=== PATIENT | male | born 1930 | race Caucasian/White ===

== ENCOUNTER 2017-12-14 13:24 | Observation (INO) ==
--- OUTSIDE RECORDS SUMMARY | 2017-12-14 15:48 | External Medical Summary | Summary of Care ---
:1930 Author Name Wade Arteaga M.D. 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 Seborrheic keratosis (702.19, L82.1) Status: Active Colon cancer screening (V76.51, Z12.11) Status: Active Non smoker (V49.89, Z78.9) Status: Active Pain in joint of right shoulder (719.41, M25.511) Status: Active Visit for periodic health examination (V70.0, Z00.00) Status: Active Allergic rhinitis (477.9, J30.9) Status: Active Benign prostatic hypertrophy without urinary obstruction (600.00, N40.0) Status: Active History of colon polyps (V12.72, Z86.010) Status: Active Colon polyp (211.3, K63.5) Status: Active Diverticulosis (562.10, K57.90) Status: Active Hypercholesterolemia (272.0, E78.00) Status: Active Hypertension (401.9, I10) Status: Active Fall from standing, subsequent encounter (V58.89, W19.XXXD) Status: Active Prostate cancer (185, C61) Status: Active Rising PSA level (790.93, R97.20) Status: Active Prostate nodule (600.10, 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 Medications Name Dates Details AmLODIPine Besylate 5 MG Oral Tablet take one tablet by mouth every day Quantity: 90 Refills: 3 Aiden Zamarripa M.D. 20-Dec-2007 Active Atorvastatin Calcium 80 MG Oral Tablet take one tablet by mouth every day Quantity: 90 Refills: 3 Aiden Zamarripa M.D. Active Bicalutamide 50 MG Oral Tablet TAKE 1 TABLET DAILY. Quantity: 90 Refills: 3 Travis Cee Start 16-Jul-2016 Active Lupron Depot 45 MG Intramuscular Kit INJECT 45 MG Intramuscular Quantity: 1 Refills: 0 Travis Cee Start 24-Aug-2016 Active Allergies and Adverse Reactions Name Dates Details No Known Drug Allergies (Allergy) Status: Active Past Medical History Name Dates Details History of colonic polyps (V12.72, Z86.010) Status: Resolved History of Diverticulosis (562.10, K57.90) Status: Resolved History of hematuria (V13.09, Z87.448) Status: Resolved History of hypercholesterolemia (V12.29, Z86.39) Status: Resolved History of hypertension (V12.59, Z86.79) Status: Resolved History of Nasal congestion (478.19, R09.81) Status: Resolved Procedures Procedure Dates Details History of Hernia Repair Procedures not documented Immunization Name Dates Details Td on: 27-Aug-1997 Pneumo (Pneumovax) on: 31-Aug-2007 Zoster (Zostavax) on: March-2008 Influenza on: 02-Aug-2011 Fluzone INJ on: 05-Jul-2012 Tdap (Adacel) on: 05-Jul-2012 Lot #: [id number] Fluzone High-Dose SUSP on: 15-Aug-2013 Lot #: [id number] Pneumo (Prevnar) on: 15-Aug-2013 Lot #: [id number] Fluzone High-Dose 0.5 ML Intramuscular Suspension Prefilled Syringe on: 2014 Lot #: [id number] Fluzone High-Dose 0.5 ML Intramuscular Suspension Prefilled Syringe on: Lot #: [id number] Family History Unknown Family Member Name Dates Details Family history of Lung Cancer (V16.1) Comments: Family History Status: Active Family history of Malignant Pancreatic Neoplasm Comments: Family History Status: Active Father Name Dates Details Family history of malignant neoplasm of stomach (V16.0, Z80.0) Status: Active Social History Name Dates Details - Status: Smoking Status Name Dates Details Never smoker Vital Signs Date Test Result Details No Known Vitals to report Results Date Description Value Details 04-Mar-2017 15:35 CBC w/ Auto Diff 7150 WBC 8.8 K/uL Range: 4.5-11.0 RBC 4.15 mil/uL (Below low threshold) Range: 4.20-5.40 HGB 13.3 g/dL (Below low threshold) Range: 14.0-18.0 HCT 38.3 % (Below low threshold) Range: 42.0-53.0 MCV 92.4 fL Range: 80.0-99.0 MCH 32.1 pg Range: 27.3-32.5 MCHC 34.7 % Range: 32.0-36.0 RDW 13.7 % Range: 11.6-14.8 PLATELETS 264 K/uL Range: 150-400 MPV 6.5 fL Range: 6.0-11.0 %NEUTRO 62.6 % Range: 37.0-80.0 %LYMPHS 22.6 % Range: 13.0-50.0 %MONO 5.4 % Range: 0.0-12.0 %EOS 6.7 % Range: 0.0-7.0 %BASO 0.9 % Range: 0.0-2.5 %ISIDORO 1.7 % Range: 0.0-5.0 NEUTRO 5.5 K/uL Range: 2.0-6.9 LYMPHS 2.0 K/uL Range: 0.6-3.4 MONOS 0.5 K/uL Range: 0.0-0.9 EOS 0.6 K/uL Range: 0.0-0.7 BASO 0.1 K/uL Range: 0.0-0.2 16:03 Comprehensive Metabolic Panel 1212 SODIUM 142 mmol/L Range: 133-144 POTASSIUM 3.9 mmol/L Range: 3.5-5.1 CHLORIDE 106 mmol/L Range: 98-110 CARBON DIOXIDE 25.8 mmol/L Range: 23.0-33.0 ANION GAP 10 mmol/L Range: 6-16 BUN 17 mg/dL Range: 7-18 CREATININE, SERUM 0.86 mg/dL Range: 0.70-1.30 BUN:CREATININE RATIO 20 EST GFR, >60 ml/min Range: >60 EST GFR, NON-AFR [place] >60 ml/min Range: >60 Comments: EST GFR is reported in ml/min per 1.73 m2 of body surface area. ----- GLUCOSE 105 mg/dL (Above high Range: 70-100 threshold) ALK PHOSPHATASE 126 U/L (Above high Range: 46-116 threshold) TOTAL BILIRUBIN 0.70 mg/dL Range: 0.20-1.00 AST 19 U/L Range: 8-35 ALT 16 U/L Range: 16-63 ALBUMIN 3.8 g/dL Range: 3.4-5.0 TOTAL PROTEIN 7.3 g/dL Range: 6.4-8.2 A/G RATIO 1.1 units Range: 1.0-1.8 CALCIUM 9.3 mg/dL Range: 8.5-10.1 16:39 Testosterone 3102 TST <7.0 ng/dL (Below low threshold) Range: 241-814 Comments: Verified by Repeat Analysis----- Plan of Care Name Dates Details Planned Observations Planned Goals not documented Planned Encounters Appointment; Provider: Wade Arteaga M.D. On 09-Sep-2017 12:30 Instructions Name Dates Details Instructions not documented Encounters Appointment; Wade Arteaga M.D. On 04-Mar-2017 Encounter Diagnosis: Problem not documented 13:15 Appointment; Aiden Zamarripa M.D. On 23-Dec-2016 Encounter Diagnosis: Problem not documented 07:30 Appointment; Aiden Zamarripa M.D. On 15-Oct-2016 Encounter Diagnosis: Problem not documented 10:45 Appointment; Aiden Zamarripa M.D. On 29-Sep-2016 Encounter Diagnosis: Problem not documented 07:30 Appointment; Travis Cee M.D.,LUDIVINA, On 24-Aug-2016 Encounter Diagnosis: Problem not documented 14:00 Appointment; Aiden Zamarripa M.D. On 11-Aug-2016 Encounter Diagnosis: Problem not documented 07:30 Appointment; Travis Cee M.D.,LUDIVINA, On 16-Jul-2016 Encounter Diagnosis: Problem not documented 10:30 Appointment; Pelon Ribeiro M.D. On 30-Jun-2016 Encounter Diagnosis: Problem not documented 11:30 Appointment; Mychal Matute On 30-Jun-2016 Encounter Diagnosis: Problem not documented 11:00 Appointment; Travis Cee M.D.,LUDIVINA, On 30-Jun-2016 Encounter Diagnosis: Problem not documented 11:00 Appointment; Travis Cee M.D., FACS, On 23-Jun-2016 Encounter Diagnosis: Problem not documented 11:00 Appointment; Aiden Zamarripa M.D. On 10-Jun-2016 Encounter Diagnosis: Problem not documented 13:30 Appointment; Aiden Zamarripa M.D. On Encounter Diagnosis: Problem not documented 07:45 Appointment; Aiden Zamarripa M.D. On 18-Mar-2016 Encounter Diagnosis: Problem not documented 07:30 Appointment; Aiden Zamarripa M.D. On 27-Feb-2016 Encounter Diagnosis: Problem not documented 13:30 Appointment; Aiden Zamarripa M.D. On 16-Jan-2016 Encounter Diagnosis: Problem not documented 07:45 Appointment; Aiden Zamarripa M.D. On 20-Nov-2015 Encounter Diagnosis: Problem not documented 11:00 Appointment; Aiden Zamarripa M.D. On 10-Sep-2015 Encounter Diagnosis: Problem not documented 11:00 Appointment; Aiden Zamarripa M.D. On 09-Jul-2015 Encounter Diagnosis: Problem not documented 11:00 Appointment; Aiden Zamarripa M.D. On 13-Jun-2015 Encounter Diagnosis: Problem not documented 10:45 Appointment; Aiden Zamarripa M.D. On Encounter Diagnosis: Problem not documented 11:15 Appointment; Aiden Zamarripa M.D. On 20-Mar-2015 Encounter Diagnosis: Problem not documented 08:00
--- OUTSIDE RECORDS SUMMARY | 2017-12-14 15:48 | External Medical Summary | Summary of Care ---
:1930 Author Name Aiden Zamarripa M.D. 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, 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 Colon cancer screening (V76.51, Z12.11) Status: Active Diverticulosis (562.10, K57.90) Status: Active Colon polyp (211.3, K63.5) Status: Active Non smoker (V49.89, Z78.9) Status: Active Pain in joint of right shoulder (719.41, M25.511) Status: Active Hypertension (401.9, I10) Status: Active Hypercholesterolemia (272.0, E78.0) Status: Active Benign prostatic hypertrophy without urinary obstruction (600.00, N40.0) Status: Active Visit for periodic health examination (V70.0, Z00.00) Status: Active Allergic rhinitis (477.9, J30.9) Status: Active Medications Name Dates Details AmLODIPine Besylate 5 MG Oral Tablet take one tablet by mouth every day Quantity: 90 Refills: 1 Aiden Zamarripa M.D. 08-Jun-2016 Active Atorvastatin Calcium 80 MG Oral Tablet take one tablet by mouth every day Quantity: 30 Refills: 10 Aiden Zamarripa M.D. Active Allergies and Adverse Reactions Name Dates Details No Known Drug Allergies (Allergy) Status: Active Past Medical History Name Dates Details History of hematuria (V13.09, Z87.448) Status: Resolved History of hypercholesterolemia (V12.29, Z86.39) Status: Resolved History of hypertension (V12.59, Z86.79) Status: Resolved History of Nasal congestion (478.19, R09.81) Status: Resolved Procedures Procedure Dates Details History of Hernia Repair Colonoscopy- Screening or Dx Pendin10-Jun-2016 STOOL OCCULT BLOOD PANEL (x3) 8210 Ordered: 10-Jun-2016 Immunization Name Dates Details Td on: 27-Aug-1997 Pneumo (Pneumovax) on: 31-Aug-2007 Zoster (Zostavax) on: March-2008 Influenza on: 02-Aug-2011 Fluzone INJ on: 05-Jul-2012 Tdap (Adacel) on: 05-Jul-2012 Lot #: [id number] Fluzone High-Dose SUSP on: 15-Aug-2013 Lot #: [id number] Pneumo (Prevnar) on: 15-Aug-2013 Lot #: [id number] Fluzone High-Dose 0.5 ML Intramuscular Suspension Prefilled Syringe on: 2014 Lot #: [id number] Family History Unknown Family Member Name Dates Details Family history of Lung Cancer (V16.1) Comments: Family History Status: Active Family history of Malignant Pancreatic Neoplasm Comments: Family History Status: Active Social History Name Dates Details - Status: Smoking Status Name Dates Details Never smoker Vital Signs Date Test Result Details 10-Jun-2016 13:23 BP Systolic 94 mm[Hg] Status: Comments: Location: ; Position: BP Diastolic 64 mm[Hg] Status: Comments: Location: ; Position: Temperature 98.1 f Status: Comments: Method: Heart Rate 92 /min Status: Comments: Location: ; Physical Findings 32 Status: Comments: Respiration Height 67 in Status: Weight 158 lb Status: Body Mass Index Calculated 24.75 kg/m2 Status: Body Surface Area Calculated 1.83 m2 Status: Results Date Description Value Details 10-Jun-2016 14:10 Urinalysis, reflex to Micro and Culture ([facility]) 8016 pH 6.0 Range: 5.0-7.5 SP GRAVITY 1.025 Range: 1.010-1.030 APPEARANCE Cloudy (Abnormal) Range: Clear COLOR Dk Yellow (Abnormal) Range: Straw-Yellow PROTEIN 15 mg/dL (Abnormal) Range: Negative-Trace GLUCOSE Negative mg/dL Range: Negative KETONES Negative mg/dL Range: Negative BILIRUBIN Negative Range: Negative BLOOD Negative Range: Negative UROBIL 1.0 EU/dL Range: 0.2-1.0 NITRITE Negative Range: Negative LEUKOCYTES Negative Range: Negative 15:11 CBC w/ Auto Diff 7150 WBC 10.5 K/uL Range: 4.5-11.0 RBC 4.16 mil/uL (Below low threshold) Range: 4.20-5.40 HGB 13.0 g/dL (Below low threshold) Range: 14.0-18.0 HCT 38.8 % (Below low threshold) Range: 42.0-53.0 MCV 93.3 fL Range: 80.0-99.0 MCH 31.3 pg Range: 27.3-32.5 MCHC 33.5 % Range: 32.0-36.0 RDW 13.6 % Range: 11.6-14.8 PLATELETS 283 K/uL Range: 150-400 MPV 7.1 fL Range: 6.0-11.0 %NEUTRO 57.2 % Range: 37.0-80.0 %LYMPHS 22.4 % Range: 13.0-50.0 %MONO 7.2 % Range: 0.0-12.0 %EOS 9.6 % (Above high threshold) Range: 0.0-7.0 %BASO 0.8 % Range: 0.0-2.5 %ISIDORO 2.9 % Range: 0.0-5.0 NEUTRO 6.0 K/uL Range: 2.0-6.9 LYMPHS 2.4 K/uL Range: 0.6-3.4 MONOS 0.8 K/uL Range: 0.0-0.9 EOS 1.0 K/uL (Above high threshold) Range: 0.0-0.7 BASO 0.1 K/uL Range: 0.0-0.2 15:19 Comprehensive Metabolic Panel 1212 SODIUM 143 mmol/L Range: 133-144 POTASSIUM 3.6 mmol/L Range: 3.5-5.1 CHLORIDE 106 mmol/L Range: 98-110 CARBON DIOXIDE 25.6 mmol/L Range: 23.0-33.0 ANION GAP 11 mmol/L Range: 6-16 BUN 13 mg/dL Range: 7-18 CREATININE, SERUM 0.87 mg/dL Range: 0.70-1.30 Comments: Please note new reference ranges effective 2015.----- BUN:CREATININE RATIO 15 EST GFR, >60 ml/min Range: >60 EST GFR, NON-AFR [place] >60 ml/min Range: >60 Comments: EST GFR is reported in ml/min per 1.73 m2 of body surface area. For -[place], please multiple result by 1.2.----- GLUCOSE 96 mg/dL Range: 70-100 ALK PHOSPHATASE 108 U/L Range: 46-116 TOTAL BILIRUBIN 0.80 mg/dL Range: 0.20-1.00 AST 27 U/L Range: 8-35 ALT 25 U/L Range: 16-63 Comments: Please note new reference ranges. Effective 01/09/2015.----- ALBUMIN 3.6 g/dL Range: 3.4-5.0 TOTAL PROTEIN 6.7 g/dL Range: 6.4-8.2 A/G RATIO 1.2 units Range: 1.0-1.8 CALCIUM 9.1 mg/dL Range: 8.5-10.1 15:19 LIPID PROFILE 1184 CHOLESTEROL 154 mg/dL Range: <200 TRIGLYCERIDES 205 mg/dL (Above high threshold) Range: 30-200 HDL Cholesterol 40 mg/dL Range: >39 NON HDL CHOLESTEROL 114 CARDIAC RSK FACTOR 3.9 units (Below low threshold) Range: 4.4-5.0 LDL - CALCULATED 73 mg/dL Range: 0-130 15:29 THYROID STIM. HORMONE 3602 THYROID STIM. HORMONE 1.264 uIU/mL Range: 0.550-4.780 Comments: No established reference ranges for infants and children &lt ;2 years of age----- 15:30 PSA ( PROSTATE SPECIFIC ANTIGEN) 3100 PROSTATE SPECIFIC ANTIGEN 5.590 ng/mL (Above high threshold) Range: 0.000- 4.000 Plan of Care Name Dates Details Planned Observations Colonoscopy- Screening or Dx On 10-Jun-2016 Intent Planned Goals not documented Interventions Provided Labs/Procedures/ImagingSTOOL OCCULT BLOOD PANEL (x3) 8210; To be Done: 10 Jun 2016CBC w/ Auto Diff 7150; Done: Jun 10 2016 1:50PMComprehensive Metabolic Panel 1212; Done: Jun 10 2016 1:50PMLIPID PROFILE 1184; Done: Jun 10 2016 1: 50PMPSA ( PROSTATE SPECIFIC ANTIGEN) 3100; Done: Jun 10 2016 1:50PMTHYROID STIM. HORMONE 3602; Done: Jun 10 2016 1:50PM Instructions Name Dates Details Instructions not documented Encounters Appointment; Aiden Zamarripa M.D. On Encounter Diagnosis: Problem not documented 07:45 Appointment; Aiden Zamarripa M.D. On 18-Mar-2016 Encounter Diagnosis: Problem not documented 07:30 Appointment; Aiedn Zamarripa M.D. On 27-Feb-2016 Encounter Diagnosis: Problem [...] 20-Mar-2015 Encounter Diagnosis: Problem not documented 08:00 Appointment; Aiden Zamarripa M.D. On 26-Feb-2015 Encounter Diagnosis: Problem not documented 10:45 Appointment; Aiden Zamarripa M.D. On 16-Dec-2014 Encounter Diagnosis: Problem not documented 10:00 Appointment; Aiden Zamarripa M.D. On 30-Oct-2014 Encounter Diagnosis: Problem not documented 08:45 Appointment; Aiden Zamarripa M.D. On 11-Sep-2014 Encounter Diagnosis: Problem not documented 11:00 Appointment; Aiden Zamarripa M.D. On 14-Aug-2014 Encounter Diagnosis: Problem not documented 10:45 Appointment; Aiden Zamarripa M.D. On 19-Jun-2014 Encounter Diagnosis: Problem not documented 10:45
--- OUTSIDE RECORDS SUMMARY | 2017-12-14 15:48 | External Medical Summary | Summary of Care ---
:1930 Author Name Coleman Mayes, LUDIVINA, ,Octaviano Address Unavailable Unavailable , Care Team Providers Name Role Phone Coleman Mayes, LUDIVINA, ,Octaviano Unavailable Unavailable Quintin Mayes, Pelon Unavailable Unavailable Dallin Mayes, Aiden Unavailable Unavailable Aiden Zamarripa [...] Status: Active Hypercholesterolemia (272.0, E78.0) Status: Active Visit for periodic health examination (V70.0, Z00.00) Status: Active Allergic rhinitis (477.9, J30.9) Status: Active Elevated PSA (790.93, R97.2) Status: Active Prostate nodule (600.10, 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 Benign prostatic hypertrophy without urinary obstruction (600.00, N40.0) Status: Active Medications Name Dates Details AmLODIPine Besylate 5 MG Oral Tablet take one tablet by mouth every day Quantity: 90 Refills: 3 Aiden Zamarripa M.D. [birth year]-Dec-2007 Active Atorvastatin Calcium 80 MG Oral Tablet take one tablet by mouth every day Quantity: 90 Refills: 3 Dallin MayesAiden Start Active PEG-3350/Electrolytes 236 GM Oral Solution Reconstituted MIX AND DRINK DIRECTED PER COLONOSCOPY INSTRUCTIONS. Quantity: 1 Refills: 0 Quintin Mayes Pelon Start 14-Jun-2016 Active 4000 ML Bottle Ciprofloxacin HCl - 500 MG Oral Tablet Take 1 tablet one hour prior to procedure, take 1 tablet at supper, take 1 tablet the next day at breakfast Quantity: 3 Refills: 0 Coleman Mayes, LUDIVINA, , , Travis Brumfield Start 23-Jun-2016 Active Allergies and Adverse Reactions Name Dates Details No Known Drug Allergies (Allergy) Status: Active Past Medical History Name Dates Details History of hematuria (V13.09, Z87.448) Status: Resolved History of hypercholesterolemia (V12.29, Z86.39) Status: Resolved History of hypertension (V12.59, Z86.79) Status: Resolved History of Nasal congestion (478.19, R09.81) Status: Resolved Procedures Procedure Dates Details History of Hernia Repair Colonoscopy- Screening or Dx Ordered: 10-Jun-2016 URINE CULTURE [id number] Ordered: 23-Jun-2016 Immunization Name Dates Details Td on: 27-Aug-1997 Pneumo (Pneumovax) on: 31-Aug-2007 Zoster (Zostavax) on: March-2008 Influenza on: 02-Aug-2011 Fluzone INJ on: 05-Jul-2012 Tdap (Adacel) on: 05-Jul-2012 Lot #: [id number] Fluzone High-Dose SUSP on: 15-Aug-2013 Lot #: [id number] Pneumo (Prevnar) on: 15-Aug-2013 Lot #: [id number] Fluzone High-Dose 0.5 ML Intramuscular Suspension Prefilled Syringe on: 2014 Lot #: [id number] Family History Unknown Family Member Name Dates Details Family history of Lung Cancer (V16.1) Comments: Family History Status: Active Family history of Malignant Pancreatic Neoplasm Comments: Family History Status: Active Social History Name Dates Details - Status: Smoking Status Name Dates Details Never smoker Vital Signs Date Test Result Details 23-Jun-2016 11:22 BP Systolic 108 mm[Hg] Status: Comments: Location: ; Position: BP Diastolic 72 mm[Hg] Status: Comments: Location: ; Position: 11-Aug-2016 13:23 BP Systolic 94 mm[Hg] Status: Comments: Location: ; Position: Sitting BP Diastolic 64 mm[Hg] Status: Comments: Location: ; Position: Sitting Temperature 98.1 f Status: Heart Rate 92 /min Status: Physical Findings 32 Status: Comments: Respiration Height 67 in Status: Weight 158 lb Status: Body Mass Index Calculated 24.75 kg/m2 Status: Body Surface Area Calculated 1.83 m2 Status: Results Date Description Value Details 10-Jun-2016 14:10 Urinalysis, reflex to Micro and Culture ([email or web address] 8016 pH 6.0 Range: 5.0-7.5 SP GRAVITY [...] >60 ml/min Range: >60 EST GFR, NON-AFR CITIZEN OF [place] >60 ml/min Range: >60 Comments: EST GFR is reported in ml/min per 1.73 m2 of body surface area. For -Nepalese, please multiple result by 1.2.----- GLUCOSE 96 [...] ng/mL (Above high threshold) Range: 0.000- 4.000 15-Jun-2016 10:52 STOOL OCCULT BLOOD PANEL (x3) 8210 OCCULT BLOOD, SAMPLE 1 Negative Range: Negative OCCULT BLOOD, SAMPLE 2 Negative Range: Negative OCCULT BLOOD, SAMPLE 3 Negative Range: Negative Plan of Care Name Dates Details Planned Observations Planned Goals not documented Planned Encounters Appointment; Provider: Pelon Ribeiro M.D. On 30-Jun-2016 11:30 Appointment; Provider: Mychal Matute On 30-Jun-2016 11:00 Appointment; Provider: Travis Cee M.D.|LUDIVINA Kevin|LUDIVINA Mayes, On 30-Jun-2016 11:00 Interventions Provided Medication ChangesCiprofloxacin HCl - 500 MG Oral Tablet - StartLabs/Procedures/ ImagingURINE CULTURE [id number]; To be Done: 23 Jun 2016 Instructions Name Dates Details Instructions not documented Encounters Appointment; Aiden Zamarripa M.D. On 10-Jun-2016 Encounter [...] On 14-Aug-2014 Encounter Diagnosis: Problem not documented 10:45"
--- OUTSIDE RECORDS SUMMARY | 2017-12-14 15:48 | External Medical Summary ---
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84 [facility] [address] Oct, Left hip pain M25.552 ; [place] [address] Left hip pain M25.552 and Radiculopathy of lumbar region M54.16 [facility] [address] Oct, Left leg pain M79.605 ; [place] [address] Left lower quadrant pain R10.32 and Prostate cancer C61 [facility] [address] Oct, Hayfever J30.1 [place] [address] [facility] [address] Oct, [place] [address] [facility] [address] Sep, Lower abdominal pain R10.30 [place] [address] [facility] [address] Aug, Cancer of prostate C61 [place] [address] [facility] [address] Jul, Osteoarthritis of right [place] [address] knee M17.9 and Hayfever J30.1 [facility] [address] 16 Jul, 2017 [place] [address] [facility] [address] May, [place] [address] [facility] [address] Mar, [place] [address] [facility] [address] Mar, Acute seasonal allergic [place] [address] rhinitis due to pollen J30.1 [facility] [address] February, [place] [address] [facility] [address] February, Prostate cancer C61 [place] [address] [facility] [address] February, Osteoarthritis of right [place] [address] knee M17.9 [facility] [address] Jan, Cancer of prostate C61 [place] [address] [facility] [address] Jan, [place] [id number] [facility] [address] Jan, Right knee pain M25.561 and [place] [address] Osteoarthritis of right knee M17.9 [facility] [address] Jul, Cancer of prostate C61 [place] [address] IMMUNIZATIONS No Known Immunizations SOCIAL HISTORY Never Assessed REASON FOR VISIT PLAN OF CARE VITAL SIGNS MEDICATIONS Unknown Medications RESULTS No Results PROCEDURES No Known procedures INSTRUCTIONS MEDICATIONS ADMINISTERED No Known Medications MEDICAL (GENERAL) HISTORY Type Description Date Surgical History right inguenial hernia repair
--- OUTSIDE RECORDS SUMMARY | 2017-12-14 15:49 | External Medical Summary ---
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
--- OUTSIDE RECORDS SUMMARY | 2017-12-14 15:49 | External Medical Summary ---
:1930 Author Organization [facility] Address [address] [place] [address] Care Team Providers Name Role Phone Nicole Guevara Unavailable Unavailable PROBLEMS ALLERGIES No Known Allergies ENCOUNTERS IMMUNIZATIONS No Known Immunizations SOCIAL HISTORY No smoking Hx information available REASON FOR VISIT PLAN OF CARE VITAL SIGNS MEDICATIONS RESULTS No Results PROCEDURES No Known procedures INSTRUCTIONS MEDICATIONS ADMINISTERED No Known Medications MEDICAL (GENERAL) HISTORY
--- OUTSIDE RECORDS SUMMARY | 2017-12-14 15:49 | External Medical Summary | Summary of Care ---
:1930 Author Name Aiden Zamarripa M.D. Address [address], [place] [id number] Care Team Providers Name Role Phone Aiden Zaamrripa M.D. 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 Started 20-Dec-2007 ActiveAtorvastatin Calcium 80 MG Oral Tablet take one tablet by mouth every day Quantity: 30 Refills: 10 Aiden Zamarripa M.D. Started Active Allergies and Adverse Reactions Name Dates Details No Known Drug Allergies Status: Active Past Medical History Name Dates Details History Of Hypercholesterolemia (V12.29, Z86.39) Status: Resolved History of hypertension (V12.59, Z86.79) Status: Resolved History of Nasal congestion (478.19, R09.81) Status: Resolved Procedures Procedure Dates Details History of Hernia Repair Procedures not documented Immunization Name Dates Details Td Administered on:27-Aug-1997 Pneumo (Pneumovax) Administered on:31-Aug-2007 Zoster (Zostavax) Administered on:March-2008 Influenza Administered on:02-Aug-2011 Fluzone Intramuscular Injectable Administered on:05-Jul-2012 Tdap (Adacel) Administered on:05-Jul-2012 Lot #: [id number] Fluzone High-Dose Intramuscular Suspension Administered on:15-Aug-2013 Lot #: [id number] Pneumo (Prevnar) Administered on:15-Aug-2013 Lot #: [id number] Fluzone High-Dose 0.5 ML Intramuscular Suspension Prefilled Syringe Administered on:Jul-2015 Lot #: [id number] Family History Unknown Family Member Name Dates Details Family history of Lung Cancer (V16.1) Comments: Family History Status: Active Family history of Malignant Pancreatic Neoplasm Comments: Family History Status: Active Social History Name Dates Details Smoking StatusNever smoker Vital Signs Date Test Result Details No Known Vitals to report Results Date Description Value Details Results not documented Plan of Care Planned Observations Name Dates Details Planned Goals not documented Goal Instructions Instructions not documented Encounters Appointment; Aiden Zamarripa On 09-Jul-2015 Encounter Diagnosis: Problem not documented 11:00 Appointment; Aiden Zamarripa On 13-Jun-2015 Encounter Diagnosis: Problem not documented 10:45 Appointment; Aiden Zamarripa On Encounter Diagnosis: Problem not documented 11:15 Appointment; Aiden Zamarripa On 20-Mar-2015 Encounter Diagnosis: Problem not documented 08:00 Appointment; Aiden Zamarripa On 26-Feb-2015 Encounter Diagnosis: Problem not documented 10:45 Appointment; Aiden Zamarripa On 16-Dec-2014 Encounter Diagnosis: Problem not documented 10:00 Appointment; Aiden Zamarripa On 30-Oct-2014 Encounter Diagnosis: Problem not documented 08:45 Appointment; Aiden Zamarripa On 11-Sep-2014 Encounter Diagnosis: Problem not documented 11:00 Appointment; Aiden Zamarripa On 14-Aug-2014 Encounter Diagnosis: Problem not documented 10:45 Appointment; Aiden Zamarripa On 19-Jun-2014 Encounter Diagnosis: Problem not documented 10:45 Appointment; Mychal Matute On Encounter Diagnosis: Problem not documented 13:45 Appointment; Ingrid Roldan On Encounter Diagnosis: Problem not documented 10:00 Appointment; Aiden Zamarripa On Encounter Diagnosis: Problem not documented 08:30 Appointment; Aiden Zamarripa On 20-Mar-2014 Encounter Diagnosis: Problem not documented 10:30 Appointment; Aiden Zamarripa On 19-Dec-2013 Encounter Diagnosis: Problem not documented 10:30 Appointment; Aiden Zamarripa On 30-Oct-2013 Encounter Diagnosis: Problem not documented 09:45 Appointment; Aiden Zamarripa On 19-Sep-2013 Encounter Diagnosis: Problem not documented 11:15 Appointment; Aiden Zamarripa On 15-Aug-2013 Encounter Diagnosis: Problem not documented 11:15
--- OUTSIDE RECORDS SUMMARY | 2017-12-14 15:49 | External Medical Summary ---
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 726046225 right knee Problem Cancer of prostate C61 Active 872734364 ALLERGIES No Information SOCIAL HISTORY Never Assessed PLAN OF CARE VITAL SIGNS MEDICATIONS Medication Instructions Dosage Frequency Start End Date Duration Status Date Amlodipine Orally Once a 1 tablet 24h 90 days Active Besylate 5 MG day Bicalutamide 50 Orally Once a 1 tablet 24h Active MG day Atorvastatin Orally Once a 1 tablet 24h 90 days Active Calcium 80 MG day RESULTS Name Result Date Reference Range [facility] Venipuncture-Charge Only 2017-09-20 PROCEDURES Procedure Date Ordered Result Body Site VENIPUNCTURE Sep 20, 2017 IMMUNIZATIONS No Known Immunizations MEDICAL (GENERAL) HISTORY Type Description Date Surgical History right inguenial hernia repair
--- OUTSIDE RECORDS SUMMARY | 2017-12-14 15:49 | External Medical Summary | Summary of Care ---
:1930 Author Name Coleman Mayes, LUDIVINA, ,Octaviano Address Unavailable Unavailable , Care Team Providers Name Role Phone Coleman Mayes, LUDIVINA, ,Octaviano Unavailable Unavailable Aiden Zamarripa M.D. Unavailable Unavailable Aiden Zamarripa Unavailable Unavailable Unavailable [...] Active Allergic rhinitis (477.9, J30.9) Status: Active Prostate nodule (600.10, 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 Benign prostatic hypertrophy without urinary obstruction (600.00, N40.0) Status: Active History of colon polyps (V12.72, Z86.010) Status: Active Colon polyp (211.3, K63.5) Status: Active Diverticulosis (562.10, K57.90) Status: Active Elevated PSA (790.93, R97.2) Status: Active Medications Name Dates Details AmLODIPine Besylate 5 MG Oral Tablet take one tablet by mouth every day Quantity: 90 Refills: 3 Aiden Zamarripa M.D. 20-Dec-2007 Active Atorvastatin Calcium 80 MG Oral Tablet take one tablet by mouth every day Quantity: 90 Refills: 3 Dallin Mayes Aiden Start Active Ciprofloxacin HCl - 500 MG Oral Tablet [...] 05-Jul-2012 Tdap (Adacel) on: 05-Jul-2012 Lot #: [id number] Fluzone High-Dose SUSP on: 15-Aug-2013 Lot #: [id number] Pneumo (Prevnar) on: 15-Aug-2013 Lot #: [id number] Fluzone High-Dose 0.5 ML Intramuscular Suspension Prefilled Syringe on: 2014 Lot #: [id number] Family History Unknown Family Member Name Dates [...] 72 mm[Hg] Status: Comments: Location: ; Position: 10-Jun-2016 13:23 BP Systolic 94 mm[Hg] Status: [...] 14:10 [facility] 8016 pH 6.0 Range: 5.0-7.5 SP GRAVITY [...] >60 ml/min Range: >60 EST GFR, NON-AFR [place] >60 ml/min Range: >60 Comments: EST GFR is reported in ml/min per 1.73 m2 of body surface area. For -Citizen Of [place], please multiple result by 1.2.----- GLUCOSE 96 [...] OCCULT BLOOD, SAMPLE 3 Negative Range: Negative 25-Jun-2016 08:44 URINE CULTURE [id number] Comments: [facility] performed at: [facility], [address] [place], [address], Fiberglass Laminator: Wade Barraza D.O., MPHQuest Collection Date/Time: 00Quest Results Received Date/Time: [id number] Reported Date /Time: FASTING:NO CULTURE, URINE, ROUTINE SEE NOTE Comments: CULTURE, URINE, ROUTINE MICRO NUMBER: [id number] TEST STATUS: FINAL SPECIMEN SOURCE: URINE , CLEAN CATCH SPECIMEN QUALITY: ADEQUATE RESULT: No Growth[DC]---- - 30-Jun-2016 Colonoscopy Abnormal- Polyps Range: 0 12:41 Plan of Care Name Dates Details Planned Observations Planned Goals not documented Instructions Name Dates Details Instructions not documented Encounters Appointment; Travis Cee M.D.|LUDIVINA Kevin|LUDIVINA Mayes, On 2015 Encounter Diagnosis: Problem not documented 11:00 Appointment; [...]
--- OUTSIDE RECORDS SUMMARY | 2017-12-14 15:49 | External Medical Summary ---
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
--- OUTSIDE RECORDS SUMMARY | 2017-12-14 15:49 | External Medical Summary | Summary of Care ---
:1930 Author Name Dallin Mayes, Aiden Address Unavailable Unavailable , Care Team Providers Name Role Phone Quintin Mayes, Pelon Unavailable Unavailable Dallin Mayes, [...] 90 Refills: 3 Aiden Zamarripa M.D. Active PEG-3350/Electrolytes 236 GM Oral Solution Reconstituted MIX AND DRINK DIRECTED PER COLONOSCOPY INSTRUCTIONS. Quantity: 1 Refills: 0 Quintin Octaviano.Conor, Pelon Start 14-Jun-2016 Active 4000 ML Bottle Allergies and Adverse Reactions Name Dates Details No Known Drug Allergies (Allergy) Status: Active Past Medical History Name Dates Details History of hematuria (V13.09, Z87.448) Status: Resolved History of hypercholesterolemia (V12.29, Z86.39) Status: Resolved History of hypertension (V12.59, Z86.79) Status: Resolved History of Nasal congestion (478.19, R09.81) Status: Resolved Procedures Procedure Dates Details History of Hernia Repair Colonoscopy- Screening or Dx Ordered: 10-Jun-2016 Immunization Name Dates Details Td on: 27-Aug-1997 Pneumo (Pneumovax) on: 31-Aug-2007 Zoster (Zostavax) on: March-2008 Influenza on: 02-Aug-2011 Fluzone INJ on: 05-Jul-2012 Tdap (Adacel) on: 05-Jul-2012 Lot #: [id number] Fluzone High-Dose SUSP on: 15-Aug-2013 Lot #: [id number] Pneumo (Prevnar) on: 15-Aug-2013 Lot #: [id number] Fluzone High-Dose 0.5 ML Intramuscular Suspension Prefilled Syringe on: 2014 Lot #: [id number] Family History Unknown Family Member Name Dates [...] 14:10 Urinalysis, reflex to Micro and Culture ([facility]) 8016 pH 6.0 Range: 5.0-7.5 SP [...] >60 ml/min Range: >60 EST GFR, NON-AFR [place] >60 ml/min Range: >60 Comments: EST GFR is reported in ml/min per 1.73 m2 of body surface area. For -[place]izean, please multiple result by 1.2.----- GLUCOSE 96 [...] On 30-Jun-2016 11:00 Appointment; Provider: Travis Cee M.D.|[place]|Sugey,LUDIVINA|Sugey,LUDIVINA, On 23-Jun-2016 11:00 Interventions Provided Labs/Procedures/ImagingCBC w/ Auto Diff 7150; Done: Jun 10 2016 1: 50PMComprehensive Metabolic Panel 1212; Done: Jun 10 2016 1:50PMLIPID PROFILE 1184; Done: Jun 10 2016 1:50PMPSA ( PROSTATE SPECIFIC ANTIGEN) 3100; Done: Jun 10 2016 1:50PMSTOOL OCCULT BLOOD PANEL (x3) 8210; Done: Jun 15 2016 10: 41AMTHYROID STIM. HORMONE 3602; Done: Jun 10 2016 [...] On 19-Jun-2014 Encounter Diagnosis: Problem not documented 10:45"
--- OUTSIDE RECORDS SUMMARY | 2017-12-14 15:49 | External Medical Summary | Summary of Care ---
:1932 Author Name Provider, Outside Address Unavailable Unavailable , Care Team Providers Name Role Phone Aiden Zamarripa M.D. 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: Active Hypercholesterolemia (272.0, E78.0) Status: Active Benign prostatic hypertrophy without urinary obstruction (600.00, N40.0) Status: Active Colon cancer screening (V76.51, Z12.11) Status: Active Diverticulosis (562.10, K57.90) Status: Active Colon polyp (211.3, K63.5) Status: Active Allergic rhinitis (477.9, J30.9) Status: Active Non smoker (V49.89, Z78.9) Status: Active Pain in joint of right shoulder (719.41, M25.511) Status: Active Medications Name Dates Details AmLODIPine [...] of hematuria (V13.09, Z87.448) Status: Resolved History Of Hypercholesterolemia (V12.29, Z86.39) Status: Resolved History of hypertension (V12.59, Z86.79) Status: Resolved History of Nasal congestion (478.19, R09.81) Status: Resolved Procedures Procedure Dates Details History of Hernia Repair Procedures not documented Immunization Name Dates Details Td Administered on:27-Aug-1997 Pneumo (Pneumovax) Administered on:31-Aug-2007 Zoster (Zostavax) Administered on:March-2008 Influenza Administered on:02-Aug-2011 Fluzone Intramuscular Injectable Administered on:05-Jul-2012 Tdap (Adacel) Administered on:05-Jul-2012 Lot #: [id number] Fluzone High-Dose Intramuscular Suspension Administered on:15-Aug-2013 Lot #: [id number] Pneumo (Prevnar) Administered on:15-Aug-2013 Lot #: [id number] Fluzone High-Dose 0.5 ML Intramuscular Suspension Prefilled Syringe Administered on:Jul-2015 Lot #: [id number] Family History Unknown Family Member Name Dates Details Family history of Lung Cancer (V16.1) Comments: Family History Status: Active Family history of Malignant Pancreatic Neoplasm Comments: Family History Status: Active Social History Name Dates Details Smoking StatusNever smoker Vital Signs Date Test Result Details 27-Feb-2016 13:24 BP Systolic 110 mm[Hg] Status: BP Diastolic 58 mm[Hg] Status: Temperature 97.7 f Status: Heart Rate 87 /min Status: Respiration Rate 12 /min Status: Weight 161 lb Status: O2 SAT 95 % Status: Body Mass Index Calculated 25.22 kg/m2 Status: Body Surface Area Calculated 1.84 m2 Status: Results Date Description Value Details Results not documented Plan of Care Planned Observations Name Dates Details Planned Goals not documented Goal Instructions Instructions not documented Encounters Appointment; Aiden Zamarripa On 27-Feb-2016 Encounter Diagnosis: Problem not documented 13:30 Appointment; Aiden Zamarripa On 16-Jan-2016 Encounter Diagnosis: Problem not documented 07:45 Appointment; Aiden Zamarripa On 20-Nov-2015 Encounter Diagnosis: Problem not documented 11:00 Appointment; Aiden Zamarripa On 10-Sep-2015 Encounter Diagnosis: Problem not documented 11:00 Appointment; Aiden Zamarripa On 09-Jul-2015 Encounter Diagnosis: [...]
--- OUTSIDE RECORDS SUMMARY | 2017-12-14 15:49 | External Medical Summary ---
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 988315488 right knee Problem Cancer of prostate C61 Active 853721212 ALLERGIES No Information SOCIAL HISTORY Never Assessed PLAN OF CARE VITAL SIGNS MEDICATIONS Medication Instructions Dosage Frequency Start End Date Duration Status Date Atorvastatin Orally Once a 1 tablet 24h 90 days Active Calcium 80 MG day Amlodipine Orally Once a 1 tablet 24h 90 days Active Besylate 5 MG day RESULTS No Results PROCEDURES Procedure Date Ordered Result Body Site INJ : DEPO MEDROL 40MG Nov 02, 2017 ADMINISTRATION OF THERAPEUTIC INJECTION Nov 02, 2017 IMMUNIZATIONS Vaccine Route Administration Date Status INJ: DEPO MEDROL 40MG IM Intramuscular Nov 02, 2017 Administered MEDICAL (GENERAL) HISTORY Type Description Date Surgical History right inguenial hernia repair
--- OUTSIDE RECORDS SUMMARY | 2017-12-14 15:49 | External Medical Summary | Summary of Care ---
:1930 Author Name Quintin Mayes, Pelon Address Unavailable Unavailable , Care Team Providers Name Role Phone Coleman Mayes, LUDIVINA, ,, M Travis Unavailable Unavailable Quintin Mayes, Pelon Unavailable Unavailable [...] Status: Active Diverticulosis (562.10, K57.90) Status: Active Non smoker (V49.89, Z78.9) Status: [...] of colon polyps (V12.72, Z86.010) Status: Active Medications Name Dates Details AmLODIPine Besylate 5 MG Oral Tablet take one tablet by mouth every day Quantity: 90 Refills: 3 Dallin Mayes, Aiden Coronel 20-Dec-2007 Active Atorvastatin Calcium 80 MG Oral [...] polyps (V12.72, Z86.010) Status: Resolved History of hematuria (V13.09, Z87.448) [...] 05-Jul-2012 Tdap (Adacel) on: 05-Jul-2012 Lot #: [id number] Fluzone High-Dose SUSP on: 15-Aug-2013 Lot #: [id number] Pneumo (Prevnar) on: 15-Aug-2013 Lot #: [id number] Fluzone High-Dose 0.5 ML Intramuscular Suspension Prefilled Syringe on: 2014 Lot #: [id number] Family History Unknown Family Member Name Dates [...] 14:10 Urinalysis, reflex to Micro and Culture ([facility]) 8016 pH 6.0 Range: 5.0-7.5 SP [...] >60 ml/min Range: >60 EST GFR, NON-AFR [place] >60 ml/min Range: >60 Comments: EST GFR is reported in ml/min per 1.73 m2 of body surface area. For -[place]enian, please multiple result by 1.2.----- GLUCOSE 96 [...] Negative Range: Negative 25-Jun-2016 08:44 URINE CULTURE [id number] Comments: [employer] performed at: [facility] [address] [place], [address], Brake Reliner: Wade Barraza D.O. MPHQuest Collection Date/Time: Quest Results Received Date/Time: [id number] Reported Date /Time: FASTING:NO CULTURE, URINE, ROUTINE SEE NOTE Comments: CULTURE, URINE, ROUTINE MICRO NUMBER: [id number] TEST STATUS: FINAL SPECIMEN SOURCE: URINE , CLEAN CATCH SPECIMEN QUALITY: ADEQUATE RESULT: No Growth[VT]---- - Plan of Care Name Dates Details Planned Observations Planned Goals not documented Instructions Name Dates Details Instructions not documented Encounters Appointment; Mychal Matute On 30-Jun-2016 Encounter Diagnosis: Problem not documented 11:00 Appointment; Travis Cee M.D.|Herminio[facility]revor[facility]revor|LUDIVINA Mayes|LUDIVINA Mayes, On 2015 Encounter Diagnosis: Problem not documented 11:00 Appointment; Travis Cee M.D.|HerminioCTrevorSTrevor|LUDIVINA Mayes|LUDIVINA Mayes, On 2015 Encounter Diagnosis: Problem not [...]
--- OUTSIDE RECORDS SUMMARY | 2017-12-14 15:49 | External Medical Summary | Summary of Care ---
[...] Quantity: 90 Refills: 1 Aiden Zamarripa M.D. Start 08-Jun-2016 Active Atorvastatin Calcium 80 MG Oral Tablet take one tablet by mouth every day Quantity: 30 Refills: 10 Aiden Zamarripa M.D. Start Active Allergies and Adverse Reactions Name Dates Details No Known Drug Allergies (Allergy) Status: Active Past Medical History Name Dates Details History of hematuria (V13.09, Z87.448) Status: Resolved History of hypercholesterolemia (V12.29, Z86.39) Status: Resolved History of hypertension (V12.59, Z86.79) Status: Resolved History of Nasal congestion (478.19, R09.81) Status: Resolved Procedures Procedure Dates Details History of Hernia Repair Colonoscopy- Screening or Dx Pendin10-Jun-2016 CBC w/ Auto Diff 7150 Ordered: 10-Jun-2016 Comprehensive Metabolic Panel 1212 Ordered: 10-Jun-2016 LIPID PROFILE 1184 Ordered: 10-Jun-2016 PSA ( PROSTATE SPECIFIC ANTIGEN) 3100 Ordered: 10-Jun-2016 STOOL OCCULT BLOOD PANEL (x3) 8210 Ordered: 10-Jun-2016 THYROID STIM. HORMONE 3602 Ordered: 10-Jun-2016 Immunization Name Dates Details Td on: 27-Aug-1997 Pneumo (Pneumovax) on: 31-Aug-2007 Zoster (Zostavax) on: March-2008 Influenza on: 02-Aug-2011 Fluzone INJ on: 05-Jul-2012 Tdap (Adacel) on: 05-Jul-2012 Lot #: [id number] Fluzone High-Dose SUSP on: 15-Aug-2013 Lot #: [id number] Pneumo (Prevnar) on: 15-Aug-2013 Lot #: [id number] Fluzone High-Dose 0.5 ML Intramuscular Suspension Prefilled Syringe on: 2014 Lot #: [id number] Family History Unknown Family Member Name Dates [...] Details Results not documented Plan of Care Name Dates Details Planned Observations Colonoscopy- Screening or Dx On 10-Jun-2016 Intent Planned Goals not documented Interventions Provided Labs/Procedures/ImagingCBC w/ Auto Diff 7150; To be Done: 10 Jun 2016Comprehensive Metabolic Panel 1212; To be Done: 10 Jun 2016LIPID PROFILE 1184; To be Done: 10 Jun 2016PSA ( PROSTATE SPECIFIC ANTIGEN) 3100; To be Done: 10 Jun 2016STOOL OCCULT BLOOD PANEL (x3) 8210; To be Done: 10 Jun 2016THYROID STIM. HORMONE 3602; To be Done: 10 Jun 2016 Instructions Name Dates Details Instructions [...]
--- OUTSIDE RECORDS SUMMARY | 2017-12-14 15:49 | External Medical Summary ---
:1932 Author Name GENERATED, SYSTEM Care Team Providers Name Role Phone EB MACKAY DALE Primary Care Provider [phone] Reason For Visit Chief Complaint PROSTATE CA Social History Functional Status Vital Signs Results MRI from 03/30/2017 3:09 PMMR RADIATION THERAPY PLANNINGFINDINGS: Radiation treatment planning purposes only. IMPRESSION: As described above. Electronically signed by: Admin, Radiology Dictated: 03/31/2017 06:13 (Reference Range: not available) Problems Encounter Diagnosis No relevant problems exist. Encounters Encounter Diagnosis No relevant problems exist. Plan of Care Procedures No relevant procedures performed. Immunizations No immunization data could be retrieved. Hospital Course Hospital Discharge Instructions Allergies, Adverse Reactions, Alerts This section is sales representative public utilities of the current allergy information, at the time of the CCD generation. In the case of regeneration of the CCD, the allergy information may not reflect the state of known allergies at the time of the CCD' s subject visit. Latex Allergy has not been assessed.IV Contrast Allergy has not been assessed. Medication Medication reconciliation has not been performed.
--- OUTSIDE RECORDS SUMMARY | 2017-12-14 15:49 | External Medical Summary ---
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 770925021 right knee Problem Cancer of prostate C61 Active 629005573 ALLERGIES No Known Allergies SOCIAL HISTORY Never Assessed PLAN OF CARE Activity Details Follow Up prn Reason: VITAL SIGNS Weight 155 lbs 2017-10-11 Height 67 in 2017-10-11 Heart Rate 89 /min 2017-10-11 Respiratory Rate 18 /min 2017-10-11 Temperature 97.4 degrees Fahrenheit 2017-10-11 Oximetry 95 % 2017-10-11 BMI 24.27 kg/m2 2017-10-11 Blood pressure systolic 110 mm Hg 2017-10-11 Blood pressure diastolic 62 mm Hg 2017-10-11 MEDICATIONS Medication Instructions Dosage Frequency Start End Date Duration Status Date Amlodipine Orally Once a 1 tablet 24h 90 days Active Besylate 5 MG day Atorvastatin Orally Once a 1 tablet 24h 90 days Active Calcium 80 MG day RESULTS Name Result Date Reference Range [facility] Venipuncture-Charge Only 2017-10-11 AMYLASE 2017-10-11 AMYLASE 56 25 - 115 C-REACTIVE PROTEIN 2017-10-11 CRP 0.18 0.05 - 0.30 COMPREHENSIVE PROFILE*-CMP 2017-10-11 Reference Lab GLUCOSE 97 74 - 106 BUN 15 7 - 18 CREATININE 0.9 0.6 - 1.3 SODIUM 143 136 - 145 POTASSIUM 3.70 3.50 - 5.10 CHLORIDE 107 98 - 107 CO2 26 21 - 32 TOTAL PROTEIN 6.2 6.4 - 8.2 ALBUMIN 2.9 3.4 - 5.0 CALCIUM 8.8 8.5 - 10.1 ALPI 103 46 - 116 TOTAL BILI 0.50 0.20 - 1.00 AST 32 15 - 36 ALTI 17 30 - 65 AGE 87 eGFR NON AFR AMER 80.20 eGFR AFR AMER 97.04 CBC AUTO DIFF MANUAL IF INDICATED* 2017-10-11 WBC 7.3 3.0 - 10.1 %LYMPH 21 20 - 40 %MONO 10.3 1.7 - 9.3 %GRAN 58.2 42.2 - 75.2 %EOS 10 0 - 2 %BASO 1 0 - 1 RBC 3.63 4.00 - 6.50 HEMOGLOBIN 11.5 13.5 - 16.5 HEMATOCRIT 33.6 41.0 - 50.0 MCV 92.6 80.0 - 100 MCH 31.7 27.0 - 34.0 MCHC 34.2 31.5 - 36.0 RDW 12.9 11.5 - 14.0 PLT 274 150 - 450 MPV 9.2 6.5 - 10.5 MANUAL DIFF NOT INDICATED URINE (C&S IF INDICATED)-UA 2017-10-11 Reference Lab URINE COLLECT VOID COLOR STRAW NORMAL:YELLOW CLARITY CLEAR NORMAL:CLEAR SP GRAVITY 1.025 PH 5 NORMAL:5 - 8 LEUKOESTERAS 500 Denis/u NORMAL:NEGATIVE NITRITE neg NORMAL:NEGATIVE PROTEIN neg NORMAL:NEGATIVE GLUCOSE norm NORMAL:NEGATIVE KETONES neg NORMAL:NEGATIVE UROBILINOGEN norm NORMAL:NEGATIVE BILIRUBIN 1 mg/dL NORMAL:NEGATIVE BLOOD 50 Margarito/uL NORMAL:NEGATIVE MICROSCOPIC NOT INDICAT PROCEDURES Procedure Date Ordered Result Body Site VENIPUNCTURE Oct 11, 2017 IMMUNIZATIONS No Known Immunizations MEDICAL (GENERAL) HISTORY Type Description Date Surgical History right inguenial hernia repair
--- OUTSIDE RECORDS SUMMARY | 2017-12-14 15:49 | External Medical Summary | Summary of Care ---
:1932 Author Name Dallin Mayes, Aiden Address Unavailable Unavailable , Care Team Providers Name Role Phone Coleman Mayes, LUDIVINA, ,, M Travis Unavailable Unavailable Dallin Mayes, Aiden Unavailable Unavailable [...] Status: Active Diverticulosis (562.10, K57.90) Status: Active Prostate cancer (185, C61) Status: Active Hypercholesterolemia (272.0, E78.00) Status: Active Hypertension (401.9, I10) Status: Active Fall from standing, subsequent encounter (V58.89, W19.XXXD) Status: Active Medications Name Dates Details AmLODIPine Besylate 5 MG Oral Tablet take one tablet by mouth every day Quantity: 90 Refills: 3 Aiden Zamarripa M.D. 20-Dec-2007 Active Atorvastatin Calcium 80 MG Oral Tablet take one tablet by mouth every day Quantity: 90 Refills: 3 Aiden Zamarripa M.D. Start Active Ciprofloxacin HCl - 500 MG Oral Tablet Take 1 tablet one hour prior to procedure, take 1 tablet at supper, take 1 tablet the next day at breakfast Quantity: 3 Refills: 0 Coleman Mayes, LUDIVINA, , Travis Brumfield Start 23-Jun-2016 Active Bicalutamide 50 MG Oral Tablet TAKE 1 TABLET DAILY. Quantity: 90 Refills: 3 Coleman Mayes, LUDIVINA, , Travis Brumfield Start 16-Jul-2016 Active Lupron Depot 45 MG Intramuscular Kit INJECT 45 MG Intramuscular Quantity: 1 Refills: 0 Coleman Mayes, LUDIVINA, , Travis Brumfield Start 24-Aug-2016 Active Allergies and Adverse Reactions [...] 05-Jul-2012 Tdap (Adacel) on: 05-Jul-2012 Lot #: [id number] Fluzone High-Dose SUSP on: 15-Aug-2013 Lot #: [id number] Pneumo (Prevnar) on: 15-Aug-2013 Lot #: [id number] Fluzone High-Dose 0.5 ML Intramuscular Suspension Prefilled Syringe on: 2014 Lot #: [id number] Fluzone High-Dose 0.5 ML Intramuscular Suspension Prefilled Syringe on: Lot #: [id number] Family History Unknown Family Member Name Dates [...] smoker Vital Signs Date Test Result Details 15-Oct-2016 11:08 BP Systolic 114 mm[Hg] Status: Comments: Location: ; Position: BP Diastolic 70 mm[Hg] Status: Comments: Location: ; Position: Temperature 97.5 f Status: Comments: Method: Heart Rate 72 /min Status: Comments: Location: ; Physical Findings 20 Status: Comments: Respiration Height 67 in Status: Weight 156 lb Status: Body Mass Index Calculated 24.43 kg/m2 Status: Body Surface Area Calculated 1.82 m2 Status: Results Date Description Value Details Results not documented Plan of Care Name Dates Details Planned Observations Planned Goals not documented Planned Encounters Appointment; Provider: Travis Cee M.D.|HODA Kevin FACS, On 23-Feb-2017 13:45 Instructions Name Dates Details Instructions not documented Encounters Appointment; Aiden Zamarripa M.D. On 29-Sep-2016 Encounter Diagnosis: Problem not documented 07:30 Appointment; Travis Cee M.D.|HerminioC.STrevor|HODA Mayes FACS, On 2015 Encounter Diagnosis: Problem not documented 14:00 Appointment; Aiden Zamarripa M.D. On 11-Aug-2016 Encounter Diagnosis: Problem not documented 07:30 Appointment; Travis Cee M.D.|HerminioC.SHODA Hanson FACS, On 2015 Encounter Diagnosis: Problem not documented 10:30 Appointment; Pelon Ribeiro M.D. On 30-Jun-2016 Encounter Diagnosis: Problem not documented 11:30 Appointment; Mychal Matute On 30-Jun-2016 Encounter Diagnosis: Problem not documented 11:00 Appointment; Travis Cee M.D.|Eliseo.STrevor|LUDIVINA Mayes|LUDIVINA Mayes, On 2015 Encounter Diagnosis: Problem not documented 11:00 Appointment; Travis Cee M.D.|[place]|Sugey,LUDIVINA|Sugey,LUDIVINA, On 2015 Encounter Diagnosis: Problem not documented [...] On 30-Oct-2014 Encounter Diagnosis: Problem not documented 08:45"
--- OUTSIDE RECORDS SUMMARY | 2017-12-14 15:50 | External Medical Summary ---
:1932 Author Name GENERATED, SYSTEM Care Team Providers Name Role Phone EB MACKAY DALE Primary Care Provider [phone] Reason For Visit Chief Complaint CANCER OF PROSTATE C61 Social History Functional Status Vital Signs Results Problems Encounter Diagnosis No relevant problems exist. Encounters Encounter Diagnosis No relevant problems exist. Plan of Care Procedures No relevant procedures performed. Immunizations No immunizations administered or ordered. Hospital Course Hospital Discharge Instructions Allergies, Adverse Reactions, Alerts This section is district representative of the current allergy information, at the [...]
--- OUTSIDE RECORDS SUMMARY | 2017-12-14 15:50 | External Medical Summary | Continuity of Care Document ---
:1932 Author Organization [facility] Allergies There is no data. Medications There is no data. Problems There is no data. Procedures There is no data. Results There is no data. Encounters ACCT No. Visit Discharge Status Pt. Type Provider Facility Loc./Unit Complaint Date/Time [id number] 03/14/2017 05/05/2017 [facility], PROSTATE 3 08:37:00 15:55:01 MELONY WALSH [id number] 03/30/2017 03/31/2017 [facility], <PV2.3. 6 13:08:00 03:30:00 MELONY Tee>CANCE R OF PROSTATE C61</PV 2.3.2>& lt;PV2.3.2 >MR RADIATION THERAPY PLANNING&l t;/PV2.3.2 >
--- OUTSIDE RECORDS SUMMARY | 2017-12-14 15:50 | External Medical Summary | Summary of Care ---
:1932 Author Name Bridget Ramirez PA-C Address [address], [place] [id number] Care Team Providers Name Role Phone Coleman [...] Hypertension (401.9, I10) Status: Active Hypercholesterolemia (272.0, E78.00) Status: Active Visit for periodic health examination (V70.0, Z00.00) Status: Active Allergic rhinitis (477.9, J30.9) Status: Active Benign prostatic hypertrophy without urinary obstruction (600.00, N40.0) Status: Active History of colon polyps (V12.72, Z86.010) Status: Active Colon polyp (211.3, K63.5) Status: Active Diverticulosis (562.10, K57.90) Status: Active Prostate cancer (185, C61) Status: Active Medications Name Dates Details AmLODIPine Besylate 5 MG Oral Tablet take one tablet by mouth every day Quantity: 90 Refills: 3 Aiden Zamarripa M.D. 20-Dec-2007 Active Atorvastatin Calcium 80 MG Oral Tablet take one tablet by mouth every day Quantity: 90 Refills: 3 Aiden Zamarripa M.D. Active Ciprofloxacin HCl - 500 MG Oral Tablet Take 1 tablet one hour prior to procedure, take 1 tablet at supper, take 1 tablet the next day at breakfast Quantity: 3 Refills: 0 Coleman Mayes, LUDIVINA, , Travis Start 23-Jun-2016 Active Bicalutamide 50 MG Oral Tablet TAKE 1 TABLET DAILY. Quantity: 90 Refills: 3 Coleman Mayes, LUDIVINA, , Travis Start 16-Jul-2016 Active Lupron Depot 7.5 MG Intramuscular Kit INJECT 7.5 MG Intramuscular Quantity: 1 Refills: 0 Coleman Mayes, LUDIVINA, , Travis Start 16-Jul-2016 Active Allergies and Adverse Reactions Name Dates [...] Procedure Dates Details History of Hernia Repair BONE SCAN WHOLE BODY Ordered: 07-Jul-2016 Immunization Name Dates Details Td on: 27-Aug-1997 Pneumo (Pneumovax) on: 31-Aug-2007 Zoster (Zostavax) on: March-2008 Influenza on: 02-Aug-2011 Fluzone INJ on: 05-Jul-2012 Tdap (Adacel) on: 05-Jul-2012 Lot #: [id number] Fluzone High-Dose SUSP on: 15-Aug-2013 Lot #: [id number] Pneumo (Prevnar) on: 15-Aug-2013 Lot #: [id number] Fluzone High-Dose 0.5 ML Intramuscular Suspension Prefilled Syringe on: 2014 Lot #: [id number] Fluzone High-Dose 0.5 ML Intramuscular Suspension Prefilled Syringe on: Lot #: [id number] Family History Unknown Family Member Name Dates [...] documented Encounters Appointment; Aiden Zamarripa M.D. On 11-Aug-2016 Encounter Diagnosis: Problem not documented 07:30 Appointment; Travis Cee M.D.|[place]|LUDIVINA Mayes|LUDIVINA Mayes, On 2015 Encounter Diagnosis: Problem not documented 10:30 Appointment; Pelon Ribeiro M.D. On 30-Jun-2016 Encounter Diagnosis: Problem not documented 11:30 Appointment; Mychal Matute On 30-Jun-2016 Encounter Diagnosis: Problem not documented 11:00 Appointment; Travis Cee M.D.|[place]|LUDIVINA Mayes|LUDIVINA Mayes, On 2015 Encounter Diagnosis: Problem not documented 11:00 Appointment; Travis Cee M.D.|[place]|Sugey,LUDIVINA|LUDIVINA Mayes, On 2015 Encounter Diagnosis: Problem not [...] On 11-Sep-2014 Encounter Diagnosis: Problem not documented 11:00"
--- OUTSIDE RECORDS SUMMARY | 2017-12-14 15:50 | External Medical Summary | Summary of Care ---
:1932 Author Name Chandler Mayes, Wade Address [address] [place] [address] [place] [address] Care Team Providers Name Role Phone Octaviano Cee Unavailable Unavailable Chandler Mayes, Wade Unavailable Unavailable Dallin Mayes, Aiden Unavailable Unavailable Jt Desai Unavailable Unavailable Unavailable Unavailable Unavailable Functional Status [...] 05-Jul-2012 Tdap (Adacel) on: 05-Jul-2012 Lot #: [id number] Fluzone High-Dose SUSP on: 15-Aug-2013 Lot #: [id number] Pneumo (Prevnar) on: 15-Aug-2013 Lot #: [id number] Fluzone High-Dose 0.5 ML Intramuscular Suspension Prefilled Syringe on: 2014 Lot #: [id number] Fluzone High-Dose 0.5 ML Intramuscular Suspension Prefilled Syringe on: Lot #: [id number] Family History Unknown Family Member Name Dates [...] documented Encounters Appointment; Aiden Zamarripa M.D. On 23-Dec-2016 Encounter [...] Diagnosis: Problem not documented 10:30 Appointment; Pelon Ribiero M.D. On 30-Jun-2016 Encounter Diagnosis: Problem not [...]
--- OUTSIDE RECORDS SUMMARY | 2017-12-14 15:50 | External Medical Summary ---
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
--- OUTSIDE RECORDS SUMMARY | 2017-12-14 15:50 | External Medical Summary ---
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 045943226 right knee Problem Cancer of prostate C61 Active 350636522 ALLERGIES No Known Allergies SOCIAL HISTORY Never Assessed PLAN OF CARE Activity Details Follow Up 4 Weeks Reason: Pending Test C-REACTIVE PROTEIN Pending Test COMPREHENSIVE PROFILE*-CMP Pending Test CBC AUTO DIFF MANUAL IF INDICATED* Pending Test URINE (C&S IF INDICATED)-UA VITAL SIGNS Weight 147.2 lbs 2017-12-05 Height 67 in 2017-12-05 Heart Rate 65 /min 2017-12-05 Respiratory Rate 16 /min 2017-12-05 Temperature 97.2 degrees Fahrenheit 2017-12-05 Oximetry 95 % 2017-12-05 BMI 23.05 kg/m2 2017-12-05 Blood pressure systolic 116 mm Hg 2017-12-05 Blood pressure diastolic 62 mm Hg 2017-12-05 MEDICATIONS Medication Instructions Dosage Frequency Start End Duration Status Date Date Atorvastatin Orally Once a 1 tablet 24h 90 Active Calcium 80 MG day Amlodipine Orally Once a 1 tablet 24h 90 Active Besylate 5 MG day Zantac 150 Orally Once a 1 tablet at 24h Active Maximum Strength day bedtime 150 MG RESULTS Name Result Date Reference Range [facility] Venipuncture-Charge Only 2017-12-05 PROCEDURES Procedure Date Ordered Result Body Site VENIPUNCTURE Dec 05, 2017 IMMUNIZATIONS No Known Immunizations MEDICAL (GENERAL) HISTORY Type Description Date Surgical History right inguenial hernia repair
--- OUTSIDE RECORDS SUMMARY | 2017-12-14 15:50 | External Medical Summary | Summary of Care ---
:1932 Author Name Chandler Mayes, Wade Address [address] [place] [address] [place] [address] Care Team Providers Name Role Phone Octaviano [...] Refills: 3 Aiden Zamarripa M.D. Start Active Bicalutamide 50 MG Oral Tablet TAKE [...] Procedure Dates Details History of Hernia Repair Testosterone 3102 Ordered: 04-Mar-2017 Immunization Name Dates Details Td on: 27-Aug-1997 Pneumo (Pneumovax) on: 31-Aug-2007 Zoster (Zostavax) on: March-2008 Influenza on: 02-Aug-2011 Fluzone INJ on: 05-Jul-2012 Tdap (Adacel) on: 05-Jul-2012 Lot #: [id number] Fluzone High-Dose SUSP on: 15-Aug-2013 Lot #: [id number] Pneumo (Prevnar) on: 15-Aug-2013 Lot #: [id number] Fluzone High-Dose 0.5 ML Intramuscular Suspension Prefilled Syringe on: 2014 Lot #: [id number] Fluzone High-Dose 0.5 ML Intramuscular Suspension Prefilled Syringe on: Lot #: [id number] Family History Unknown Family Member Name Dates [...] Provider: Wade Arteaga M.D. On 09-Sep-2017 12:30 Interventions Provided Labs/Procedures/ImagingTestosterone 3102; To be Done: 04 Mar 2017 Instructions Name Dates Details Instructions not documented [...] 11:00 Appointment; Travis Cee M.D., FACS, On 30-Jun-2016 Encounter Diagnosis: Problem not documented 11:00 Appointment; Travis Cee M.D., FACS, On 23-Jun-2016 Encounter Diagnosis: Problem not documented 11:00 Appointment; Aiden Zaamrripa M.D. On 10-Jun-2016 Encounter Diagnosis: Problem not [...] Encounter Diagnosis: Problem not documented 11:00 Appointment; Aidne Zamarripa M.D. On 10-Sep-2015 Encounter Diagnosis: Problem [...]
--- OUTSIDE RECORDS SUMMARY | 2017-12-14 15:50 | External Medical Summary | Summary of Care ---
:1932 Author Name Aiden Zamarripa M.D. Address [address], [place] [address] Care Team Providers Name Role Phone Aiden [...] on:05-Jul-2012 Tdap (Adacel) Administered on:05-Jul-2012 Lot #: [id number] Fluzone High-Dose Intramuscular Suspension Administered on:15-Aug-2013 Lot #: [id number] Pneumo (Prevnar) Administered on:15-Aug-2013 Lot #: [id number] Fluzone High-Dose 0.5 ML Intramuscular Suspension Prefilled Syringe Administered on:Jul-2015 Lot #: [id number] Family History Unknown Family Member Name Dates [...]
--- OUTSIDE RECORDS SUMMARY | 2017-12-14 15:50 | External Medical Summary | Summary of Care ---
:1932 Author Name Bridget Ramirez PA-C Address [address], [place] [address] Care Team Providers Name Role Phone Coleman [...] at breakfast Quantity: 3 Refills: 0 Coleman Mayse, LUDIVINA, , Travis Start 23-Jun-2016 Active Bicalutamide [...] 05-Jul-2012 Tdap (Adacel) on: 05-Jul-2012 Lot #: [id number] Fluzone High-Dose SUSP on: 15-Aug-2013 Lot #: [id number] Pneumo (Prevnar) on: 15-Aug-2013 Lot #: [id number] Fluzone High-Dose 0.5 ML Intramuscular Suspension Prefilled Syringe on: 2014 Lot #: [id number] Family History Unknown Family Member Name Dates [...] 108 mm[Hg] Status: Comments: Location: ; Position: Sitting BP Diastolic 72 mm[Hg] Status: Comments: Location: ; Position: Sitting Results Date Description Value Details 25-Jun-2016 08:44 URINE CULTURE [id number] Comments: Uvinum performed at: [employer] [facility], [address] [place], [address], Eyeglass Frames Inspector: Wade Barraza D.O., MPHQuest Collection Date/Time: 00Quest Results Received Date/Time: [id number] Reported Date /Time: FASTING:NO CULTURE, URINE, ROUTINE SEE NOTE Comments: CULTURE, URINE, ROUTINE MICRO NUMBER: [id number] TEST STATUS: FINAL SPECIMEN SOURCE: URINE , CLEAN CATCH SPECIMEN QUALITY: ADEQUATE RESULT: No Growth[AL]---- - 30-Jun-2016 Colonoscopy Abnormal- Polyps Range: 0 12:41 09-Jul-2016 09:47 CT AB/ PEL WITHOUT AND WITH Comments: Exam Date: 07/09/2016 08:52Dictation Date: 07/09/2016 09:47 ORAL AND IV CONTRAST XC ABD/PEL W/O & W/ 13:05 XN INJ BONE WB Comments: Exam Date: 07/09/2016 08:51Dictation Date: 07/09/2016 13:05 Plan of Care Name Dates Details Planned Observations Planned Goals not documented Interventions Provided Medication ChangesBicalutamide 50 MG Oral Tablet - Start Instructions Name Dates Details Instructions not documented Encounters Appointment; Pelon Ribeiro M.D. On 30-Jun-2016 Encounter Diagnosis: Problem not documented 11:30 Appointment; Mychal Matute On 30-Jun-2016 Encounter Diagnosis: Problem not documented 11:00 Appointment; Travis Cee M.D.|HerminioC.STrevor|LUDIVINA Mayes|LUDIVINA Mayes, On 2015 Encounter Diagnosis: Problem not documented 11:00 Appointment; Travis Cee M.D.|HerminioC.STrevor|LUDIVINA Mayes|LUDIVINA Mayes, On 2015 Encounter Diagnosis: Problem [...]
[2017-12-14 16:14] VITALS: BMI 22.7
[2017-12-14] MEDS ORDERED: ACETAMINOPHEN 325 MG TABLET PO PRN (18:02)
[2017-12-14] MEDS ORDERED: ONDANSETRON 4 MG/2 ML INJECTION IVP PRN (18:04)
--- NOTE | 2017-12-14 18:12 | History & Physical Report ---
History of Present Illness Date: 12/14/17 Chief complaint: back pain, abdominal pain, lymphadenopathy HPI: Patient is a pleasant 87-year-old male who resides in [place], [place] independently under the primary care of Dr. Jt Connolly. Patient reports he last received a Lupron injection in August and since that time has had a steady decline including weakness and fatigue. Since that time he has also had acute onset of generalized abdominal pain with lumbar back pain with radiation down the left leg. Patient was scheduled for a colonoscopy tomorrow. 12/15 and began the bowel prep yesterday while at home. He had taken large doses of MiraLAX for GI prep and began to feel significantly more weak. He was able to ambulate to his living room and called the hospital and was speaking on the phone with the nurse, at which time he had a syncopal episode for several minutes. The nurse remained on the line during this time and then contacted EMS , patient was seen in the emergency room yesterday at [facility] for further evaluation. Basic laboratory studies were obtained. And a CT scan of the abdomen. Unfortunately revealed extensive retroperitoneal and left pelvic lymphadenopathy with encasement of sciatic neurovascular bundle and left iliac vascular structures. This is concerning for potential lymphoma or metastatic disease. The cousin his reported left lower extremity pain. A venous Doppler of the left lower extremity was also performed that showed no evidence of acute DVT. Because of these findings, Dr. Demarco with oncology was contacted as well as the [facility] hospitalist. He was accepted for direct admission to [facility] medical unit under the care of Dr. Gresham. Morning labs from [facility] are reviewed, white count was found to be normal at 5.5, hemoglobin 10.4, hematocrit 30.6, platelet count 226. Sodium is 141, potassium 4.1, BUN 13, creatinine 0.9. Patient did have a urinalysis that was positive on 12/05/17. A urine culture was performed and did grow out Escherichia coli. Since that time, patient has been on Cipro. Patient is alert, oriented and pleasant. He is able to give accurate history and is accompanied by his son and daughter. We did discuss advanced directives. Patient does indicate he is a do not resuscitate Review of Systems All systems PM: 10-point ROS was reviewed, no additional remarkable complaints except - Constitutional Constitutional: Present: fatigue, weakness - Gastrointestinal Gastrointestinal: Present: abdominal pain, diarrhea (since bowel prep started yesterday), nausea (5. Diffuse) - Musculoskeletal Musculoskeletal: Present: back pain (generalized lumbar and paraspinal discomfort) Past Medical History Patient Stated Medical History Hypertension Hypercholesterolemia Hiatal hernia. History of prostate cancer- March-2017. Underwent 5 episodes of radiation under the care of a local urologist in [place], [place] Surgical History: Right inguinal hernia repair Family History Updates: Mother- from old age. Father from a perforated ulcer. Daughter and Son alive and well - Social History Smoking status: Never smoker Substance use type: does not use Alcohol intake frequency: does not drink Housing: house Current occupational status: retired Current residence: Apartment/Private Home Social history: PCP Dr Jt Connolly- [facility] Patient resides independently in [place], [place]. He continues to drive and is quite active. Recent - 6 months ago Son and daughter live near by Medications Home Medications Medication Instructions Recorded Confirmed Type Acetaminophen [Tylenol] 1 tab PO Q4H PRN 12/14/17 12/14/17 History Amlodipine [Norvasc] 5 mg PO DAILY 12/14/17 12/14/17 History Ciprofloxacin [Cipro 500 mg] 500 mg PO BID 12/14/17 12/14/17 History raNITIdine HCl [Zantac 75] 75 mg PO DAILY 12/14/17 12/14/17 History Allergies Allergy/AdvReac Type Severity Reaction Status Date / Time No Known Drug Allergies Allergy Verified 12/14/17 16:21 Exam Vital Signs: Temperature 97.8 F 12/14/17 16:05 Pulse Rate 78 12/14/17 16:05 Respiratory Rate 16 12/14/17 16:05 Blood Pressure 122/71 12/14/17 16:14 Pulse Oximetry 98 12/14/17 16:05 Height/Weight/BMI: Height 1.7 m Weight 65.9 kg Body Mass Index 22.7 - Constitutional Present: no acute distress, well nourished, well developed - Routine HEENT Exam Eye: Present: EOMI ENT: Present: mucous membranes moist, dentition normal - Routine Respiratory Exam Present: CTA bilaterally. Absent: wheezes - Routine Cardiovascular Exam Present: RRR, S1, S2. Absent: murmur - Routine Abdominal Exam Present: soft, non distended, non tender. Absent: normoactive bowel sounds ( hypoactive), tenderness - Routine Extremities Exam Present: no edema, full ROM, normal capillary refill - Routine Skin Exam Present: dry, warm - Routine Neurological Exam Present: alert, oriented X3, CN II-XII intact, moving all extremities - Routine Psychiatric Exam Present: normal affect, cooperative Results - Labs CBC & Chem 7: 12/14/17 17:37 12/14/17 17:37 Assessment and Plan (1) Abdominal pain Current visit: Yes Status: Acute (2) Back pain Current visit: Yes Status: Acute (3) Lymphadenopathy, retroperitoneal Current visit: Yes Status: Acute Assessment and Plan: Impression Extensive retroperitoneal lymphadenopathy Back pain- worsening by 3 months Diffuse abdominal pain- worsening by 3 months Hypertension Hyperlipidemia History of prostate cancer-underwent 5 rounds of radiation in March 2017 Plan Admit outpatient/observation under the care of Dr. Gresham for abdominal pain, back pain, lymphadenopathy. Consult placed to Dr. Demarco for further oncology evaluation and recommendations. Repeat CBC, BMP, LDH on admission. Will obtain CT scan of the chest to rule out underlying neoplasm. Continue with clear liquid diet only. May require Colonoscopy. Has been undergoing prep since yesterday as he was scheduled for an outpatient colonoscopy tomorrow 12/15 in [place], [place]. Continue hydration with normal saline at 100 ML per hour. We discussed pain control as patient has been utilizing significant Tylenol without any pain relief. Will place Lidoderm patch to patient's back and will order Denton to use as needed for pain control. Continue on home Norvasc for treatment of hypertension. Patient had only recently been placed on Zantac 2 weeks ago when evaluated for his abdominal discomfort. However, he did not feel this made any difference. Zofran available as needed for nausea Patient has completed 8 day course of Cipro for treatment of UTI. We will stop Cipro and recheck urinalysis at this time Given weakness and ability will consider consultation with PT and OT to evaluate weakness given patient resides independently SCDs to bilateral lower extremity for DVT prophylaxis Patient does wish to be a do not resuscitate and this orders written Further orders and plan of care is to be discussed with attending, Dr. Gresham. At time of discharge medical care will return to PCP in [place], [place], Dr. Jt Connolly. DVT Prophylaxis: SCD's GI Prophylaxis: Rantidine Resuscitation Status: Do Not Resuscitate - Physician Narrative Physician: Danielle Gresham MD Narrative: Date: 12/14/17 Time: 2134 I have independently evaluated and examined this patient. I reviewed the chart, the patient's history, and the TELEVISION PRODUCTION CLERK/PA's documented findings as above. We discussed and formulated the assessment and plan as above with additions as below: Mr. Levy was seen with family members at the bedside. Patient reports he completed radiation therapy last March, had a PSA done 09/20/17 at which time it was <0.13, received a Lupron injection 09/28/17, and developed abdominal/back pain 10 days later which has slowly escalated to the present time. Pain varies from day to day and can be in different locations at different times but is generally centered around the waist level. Over time the patient has lost his appetite and reports 10 pound weight loss in the past 2 months. Describes occasional orthostatic lightheadedness. Colonoscopy was being obtained due to increasing pain but he denies preceding rectal bleeding or heme positive stools. He had not developed diarrhea in response to the bowel prep at the time of the syncopal event but was having intense abdominal pain and cramping. Pain control has improved with initiation of lidocaine patches and Denton. CT as described above. PSA prior to transfer today 4.83. Minor drop in hemoglobin with hydration, no leukocytosis, magnesium low yesterday at 1.5, and protein/albumin levels low consistent with malnutrition. INR 0.97 yesterday. NAD, alert Respirations nonlabored, good airflow, breath sounds clear Cardiac rhythm slightly irregular Abdomen soft, nontender, bowel sounds present Sensation intact bilateral lower extremities, power symmetric CT chest reviewed by myself-no significant disease in the lungs but extensive periaortic adenopathy starting at about the level of the renal arteries and increasing distally. Simple cyst in the left kidney. Labs here with LDH 950, urine unremarkable. Discussed with Dr. Demarco-will attempt a biopsy pelvic adenopathy tomorrow in radiology. Elevated PSA consistent with recurrent metastatic prostate cancer although CT raises question of lymphoma. Continue efforts at pain control. Hospital Course Summary Disclaimer: The visit summary below is not to be considered part of the above Progress Note. Hospital Course: Impression Extensive retroperitoneal lymphadenopathy Back pain- worsening by 3 months Diffuse abdominal pain- worsening by 3 months Hypertension Hyperlipidemia History of prostate cancer-underwent 5 rounds of radiation in March 2017 Plan Rectal admission outpatient observation under the care of Dr. Gresham for abdominal pain, back pain, lymphadenopathy. Consult placed to Dr. Demarco for further oncology evaluation and recommendations. Repeat CBC, BMP, LDH on admission. Will obtain CT scan of the chest to rule out underlying neoplasm. Continue with clear liquid diet only. May require Colonoscopy. Has been undergoing prep since yesterday as he was scheduled for an outpatient colonoscopy tomorrow 12/15 in [place], [place]. Continue hydration with normal saline at 100 ML per hour. We discussed pain control as patient has been utilizing significant Tylenol without any pain relief. Will place Lidoderm patch to patient's back and will order Denton to use as needed for pain control. Continue on home Norvasc for treatment of hypertension. Patient had only recently been placed on Zantac 2 weeks ago when evaluated for his abdominal discomfort. However, he did not feel this made any difference. Zofran available as needed for nausea Patient has completed 8 day course of Cipro for treatment of UTI. We will stop Cipro and recheck urinalysis at this time Given weakness and ability will consider consultation with PT and OT to evaluate weakness given patient resides independently SCDs to bilateral lower extremity for DVT prophylaxis Patient does wish to be a do not resuscitate and this orders written Further orders and plan of care is to be discussed with attending, Dr. Gresham. At time of discharge medical care will return to PCP in [place], [place], Dr. Jt Connolly.
--- NOTE | 2017-12-14 18:15 | Consult Note ---
Oncology [facility] - Data of Consult Consult date: 12/14/17 Requesting Physician: Danielle Gresham MD Primary Care Provider: Jt Desai - Consult Narrative Reason for consult: Lymphadenopathy History of present illness: Prostate cancer diagnosed by Dr. Cee. Had Lupron and casodex. After one month at a follow up with Dr. Arteaga he referred to radiation with Dr. Joshi. He had 5 treatment in March. He saw a new urologist at [facility] on and had 6 month lupron injection. He developed pain in the lower back and abdomen starting Mid September 2017. It progressively worsened and he developed syncope that was associated wth the pain and was admited in [place]. He had CT that found retroperitoneal adenopathy and he is transferred for evaluation. Review of Systems - Constitutional Constitutional: Present: fatigue - EENT Eyes: Present: pain. Absent: blurry vision, change in vision, dry eye Ears: Present: other (Hearing loss hearing aids) Nose: Present: obstruction (occasional). Absent: nosebleeds Mouth/Throat: Absent: pain, sore throat - Cardiovascular Cardiovascular: Present: syncope. Absent: chest pain, palpitations, dyspnea on exertion, edema - Respiratory Respiratory: Absent: cough, dyspnea, hemoptysis Additional comments: Occasional asthma - Gastrointestinal Gastrointestinal: Present: abdominal pain, change in bowel habits. Absent: coffee ground emesis, constipation, diarrhea, nausea - Genitourinary Genitourinary: Absent: difficulty with ejaculations, urinary frequency, urinary hesitancy - Musculoskeletal Musculoskeletal: Absent: arthralgias, joint swelling - Integumentary/Breasts Integumentary: Absent: alopecia, rash, jaundice - Neurological Neurological: Absent: convulsions, focal weakness, numbness - Endocrine Endocrine: Absent: cold intolerance, heat intolerance - Hematologic/Lymphatic Hematologic/Lymphatic: Absent: anemia, easy bleeding, easy bruising [facility] Patient Stated Medical History Hypertension Yes Hiatal Hernia Yes Medical History Updates: Elevated cholesterol. GERD. Prostate cancer Surgical History: Hernia Family History: Brother lung cancer Mother old age. Other brother 10 y0 ruptured appendix - Social History Smoking status: Never smoker Household members: none, other ( April 19 2017 from brain aneurysm) Current occupation: Retired [employer] Current occupational exposures/hazards: No Previous occupational history: [employer] Medications Home Medications Medication Instructions Recorded Confirmed Type Acetaminophen [Tylenol] 1 tab PO Q4H PRN 12/14/17 12/14/17 History Amlodipine [Norvasc] 5 mg PO DAILY 12/14/17 12/14/17 History Ciprofloxacin [Cipro 500 mg] 500 mg PO BID 12/14/17 12/14/17 History raNITIdine HCl [Zantac 75] 75 mg PO DAILY 12/14/17 12/14/17 History Allergies Allergy/AdvReac Type Severity Reaction Status Date / Time No Known Drug Allergies Allergy Verified 12/14/17 16:21 Exam Vital signs: Temperature 97.8 F 12/14/17 16:05 Pulse Rate 78 12/14/17 16:05 Respiratory Rate 16 12/14/17 16:05 Blood Pressure 122/71 12/14/17 16:14 Pulse Oximetry 98 12/14/17 16:05 - Constitutional no acute distress, well nourished - Routine HEENT Exam Head: Present: normocephalic Eye: Present: EOMI, PERRL ENT: Present: mucous membranes moist - Routine Neck Exam Present: supple, full ROM, lymphadenopathy - Routine Respiratory Exam Present: CTA bilaterally. Absent: accessory muscle use - Routine Cardiovascular Exam Present: RRR, no murmur - Routine Abdominal Exam Present: soft, non distended, non tender. Absent: organomegaly - Routine Extremities Exam Absent: cyanosis, clubbing, edema - Routine Skin Exam Present: dry, warm. Absent: cyanosis - Routine Neurological Exam Present: alert, oriented X3, CN II-XII intact. Absent: motor deficit - Routine Psychiatric Exam Present: normal affect, normal thought process Oncology Results - Labs CBC & Chem 7: 12/15/17 04:34 12/15/17 04:34 Labs: Short CBC 12/14/17 Range/Units 17:37 WBC 5.7 (4.5-11.0) T/MM3 Hgb 11.2 L (13.5-17.5) GM/DL Hct 34.0 L (41-53) % Plt Count 241 (130-400) T/MM3 [facility] 12/14/17 17:37 Sodium 144 Potassium 3.9 Chloride 109 H Carbon Dioxide 23 BUN 10.0 Creatinine 0.7 L Glucose 100 Calcium 8.8 Laboratory Tests 12/14/17 12/14/17 17:37 17:37 WBC 5.7 Hgb 11.2 L Hct 34.0 L Plt Count 241 Neut % (Auto) 63.0 Lymph % (Auto) 22.3 L Creatinine 0.7 L Lactate Dehydrogenase 950 H Assessment and Plan Assessment and Plan: CT scan showing significant retroperitoneal lymphadenopathy that could be related to metastatic prostate carcinoma although PSA is not significantly elevated. It is associated with elevated LDH and could be related to lymphoma. It is been increasing over the last 6 weeks and causing more pain. Because of this finding I think proceeding with needle biopsy would be best approach. Will attempt to obtain this biopsy tomorrow. 2. History of prostate cancer treated with radiation therapy and Lupron. Will attempt to obtain records. The lymph nodes along the back of the abdomen could be related to prostatic carcinoma but you would expect the PSA to be increasing more rapidly. This would also be very unusual with the PSA on 12/14/184.83. It was 3.65 on 12/05/17. 3. Anemia with hemoglobin dropping from outside hospital from 11.9 on admission on 12/13 to 10.4 on 12/14. Will need to follow closely and consider GI loss. Recommendation Needle biopsy Follow CBC Get Records.
[2017-12-14] MEDS ORDERED: SALINE FLUSH 10ml SYRINGE ONE (18:16)
[2017-12-14] MEDS ORDERED: IOHEXOL 300mg/ml 75ml INJECTION ONE (18:16)
[2017-12-14] MEDS: HYDROCODONE/APAP 5mg/325mg TABLET PO PRN (18:43)
[2017-12-14] MEDS: NS 1,000 ML IV SCH (18:44)
[2017-12-14] MEDS: LIDOCAINE 5% PATCH TOP SCH (18:44)
[2017-12-14] MEDS: LIDOCAINE PATCH REMOVAL TOP SCH (21:00)
[2017-12-14] MEDS ORDERED: MELATONIN 1 MG TABLET PO PRN (23:06)
[2017-12-15] MEDS: HYDROCODONE/APAP 5mg/325mg TABLET PO PRN ×3 (02:47→20:45)
--- NOTE | 2017-12-15 07:59 | CT Scan Report ---
Indication: abdominal adenopathy, history of prostate cancer PROCEDURE: CT chest w con: Encounter: Initial Comparison: None Technique: Axial CT images were performed through the chest after the administration of intravenous contrast. Coronal and sagittal two-dimensional reformats. Automated Exposure Control and Iterative Reconstruction dose reducing techniques were utilized. Contrast: Omnipaque 300 74 mL Findings: The lung bases show a 5 to 6 mm noncalcified left lower lobe pulmonary nodule and minimal scarring in the right lower lobe. No pneumonia, pleural effusion or pneumothorax. The central airways are patent. The thyroid gland is unremarkable. No axillary or mediastinal adenopathy. Heart size is normal. No pericardial effusion. The upper abdomen shows bulky retroperitoneal adenopathy surrounding the aorta and IVC. Bone windows show old healed rib fractures but no obvious lytic or blastic bony lesions. Impression: 1. No acute disease process seen in the chest. 2. Extensive retroperitoneal adenopathy. There is a preliminary report by [email or web address]. .
--- NOTE | 2017-12-15 08:51 | Progress Note ---
<Zulma De La Garza - Last Filed: 12/15/17 16:01> Oncology Subjective Reclining in hospital bed. Anticipating biopsy today. Denies headache, vision changes, no shortness of air or cough. Complains of intermittent lower abdominal pain, states this is been present for a few weeks. Small amount diarrhea, note had colonoscopy prep yesterday. States voiding normally. Denies other pain or new concerns. General: No fever, no night sweats Eyes: No redness, no pain, no diplopia ENT: No mouth sores, no trouble swallowing. Dry mouth, is nothing by mouth. Cardiac: No chest pain no palpitations Pulmonary: No cough, no shortness of breath, no wheezing Abdomen: No nausea/vomiting. Intermittent lower abdominal pain. : No urgency, frequency, dysuria, or hematuria. Chronic nocturia, 2-3 times a night, unchanged. Musculoskeletal: No arthritis, no myalgias Neurological: No headaches, no focal weakness Skin: No rash, no sores Psychiatric: No anxiety, no depression Exam Vital signs: Temperature 98.6 F 12/15/17 08:00 Pulse Rate 56 L 12/15/17 08:00 Respiratory Rate 18 12/15/17 08:00 Blood Pressure 94/43 12/15/17 08:00 Pulse Oximetry 95 12/15/17 08:00 - Constitutional no acute distress, well nourished, well developed - Routine HEENT Exam Head: Present: normocephalic Eye: Present: EOMI ENT: Present: mucous membranes dry - Routine Neck Exam Present: supple. Absent: lymphadenopathy, tenderness - Routine Respiratory Exam Present: CTA bilaterally - Routine Cardiovascular Exam Present: RRR, no murmur - Routine Abdominal Exam Present: soft, normoactive bowel sounds. Absent: tenderness, mass - Routine Extremities Exam Present: no edema, full ROM - Routine Skin Exam Present: intact, dry, pallor - Routine Neurological Exam Present: alert, oriented X3 - Routine Psychiatric Exam Present: normal affect, cooperative Oncology Results - Labs CBC & Chem 7: 12/15/17 04:34 12/15/17 04:34 Labs: Short CBC 12/14/17 12/15/17 Range/Units 17:37 04:34 WBC 5.7 5.4 (4.5-11.0) T/MM3 Hgb 11.2 L 9.4 L D (13.5-17.5) GM/DL Hct 34.0 L 29.5 L D (41-53) % Plt Count 241 208 (130-400) T/MM3 BMP 12/14/17 12/15/17 17:37 04:34 Sodium 144 142 Potassium 3.9 3.6 Chloride 109 H 111 H Carbon Dioxide 23 23 BUN 10.0 7.0 L Creatinine 0.7 L 0.6 L Glucose 100 88 Calcium 8.8 8.1 L Liver Function 12/15/17 Range/Units 04:34 Total Bilirubin 0.40 (0.20-1.30) MG/DL AST 57 (17-59) U/L ALT 28 (21-72) U/L Alkaline Phosphatase 72 (38-126) U/L Albumin 2.8 L (3.5-5.0) G/DL Urine 12/14/17 Range/Units 18:54 Urine Color Yellow (YELLOW) Urine Clarity Clear Urine pH 5.0 (5.0-8.0) Ur Specific [place] 1.025 (1.015-1.025) Urine Protein Negative (NEGATIVE) Urine Glucose (UA) Negative (NEGATIVE) Assessment and Plan Assessment and Plan: Assessment 1. Retroperitoneal lymphadenopathy, potentially related to metastatic prostate carcinoma versus lymphoma. Dr. Demarco has discussed with patient; recommend needle biopsy for definitive pathology, scheduled to be done today. 2. History of prostate cancer treated with radiation therapy and Lupron. Have requested records. PSA on is 83, PSA was 3.65 on 12/05/17. 3. Anemia with hemoglobin dropping from outside hospital from 11.9 on admission on 12/13 to 10.4 on 12/14. HGB today, 12/15/17, is 9.4 Recommendation Needle biopsy scheduled for today, await pathology. Follow CBC. Continue supportive care. Patient has no questions at this time. - Time Spent With Patient Total time spent is greater than 50% in coordination of care (as documented) at patient's floor/unit and/or counseling patient: less than 15 minutes <Gus Demarco - Last Filed: 12/16/17 18:14> Exam Vital signs: Temperature 98.0 F 12/16/17 09:40 Pulse Rate 64 12/16/17 09:40 Respiratory Rate 16 12/16/17 09:40 Blood Pressure 120/68 12/16/17 12:02 Pulse Oximetry 94 12/16/17 09:40 Oncology Results - Labs CBC & Chem 7: 12/16/17 04:22 12/16/17 04:22 Labs: Short CBC 12/16/17 Range/Units 04:22 WBC 5.4 (4.5-11.0) T/MM3 Hgb 10.1 L (13.5-17.5) GM/DL Hct 31.9 L (41-53) % Plt Count 226 (130-400) T/MM3 BMP 12/16/17 04:22 Sodium 144 Potassium 3.9 Chloride 110 H Carbon Dioxide 26 BUN 10.0 Creatinine 0.7 L Glucose 93 Calcium 8.3 L Assessment and Plan Assessment and Plan: Late entry Patient seen at 1:30 on 12/15. Biopsy tomorrow. Agree with Documentation of Anya De La Garza. Prostate cancer High floyd grade. I participated in the development of the plan of care of this patient. - Time Spent With Patient Total time spent is greater than 50% in coordination of care (as documented) at patient's floor/unit and/or counseling patient:
[2017-12-15] MEDS: AMLODIPINE 5 MG TABLET PO SCH (08:56)
[2017-12-15] MEDS ORDERED: RANITIDINE 150 MG TABLET PO SCH (09:00)
[2017-12-15] MEDS: MORPHINE SULFATE 2mg INJECTION IVP PRN ×3 (09:00→22:01)
[2017-12-15] MEDS ORDERED: CIPROFLOXACIN 500 MG TABLET PO SCH (09:00)
[2017-12-15] MEDS: LIDOCAINE 5% PATCH TOP SCH (09:11)
[2017-12-15] MEDS ORDERED: APAP/DIPHENHYDRAMINE 500 MG/25 MG TABLET PO PRN (13:48)
[2017-12-15] MEDS: NS 1,000 ML IV SCH ×2 (15:59→20:03)
--- NOTE | 2017-12-15 19:45 | Progress Note ---
- Date 12/15/17 Subjective: Chanell reports increased pain in the low anterior abdomen with pain rated 5/10 when seen earlier today. Because she was nothing by mouth for anticipated biopsy IV pain medication was needed. He denied dyspnea, nausea, bowel movement , lightheadedness, or dysuria. He's had no pain outside of the abdomen or low back. Biopsy of the pelvic mass was initially scheduled for today but later canceled due to radiology scheduling and has been rescheduled for tomorrow morning. Objective Vital signs: Temperature 97.7 F 12/15/17 17:00 Pulse Rate 70 12/15/17 18:47 Respiratory Rate 18 12/15/17 17:00 Blood Pressure 132/73 12/15/17 17:00 Pulse Oximetry 92 -RA 12/15/17 17:00 NAD, alert EOMI, conjunctiva clear, sclera anicteric Respirations nonlabored, good airflow, breath sounds clear Regular rhythm, S1-S2 Abdomen soft, nontender, bowel sounds present MAEW Calm, cooperative Height/Weight/BMI: Height 1.7 m Weight 67.9 kg Body Mass Index 22.7 Results - Labs CBC & Chem 7: 12/15/17 04:34 12/15/17 04:34 Labs: Hemoglobin on admission in [place] was 11.5 dropping to 10.4 prior to discharge; on admission here yesterday was 11.2 and now 9.4. MCV 94.2. INR 1.08 Liver enzymes unremarkable, calcium 8.1, total protein 5.3, albumin 2.8 Assessment and Plan (1) Abdominal pain Current visit: Yes Status: Acute (2) Back pain Current visit: Yes Status: Acute (3) Lymphadenopathy, retroperitoneal Current visit: Yes Status: Acute Assessment and Plan: Impression Extensive retroperitoneal lymphadenopathy Back pain- worsening by 3 months Diffuse abdominal pain- worsening by 3 months Anemia, normocytic Malnutrition Hypertension Hyperlipidemia History of prostate cancer-underwent 5 rounds of radiation in March 2017; rising PSA Insomnia Plan Generally doing well, biopsy of pelvic mass scheduled for tomorrow morning. Diet resumed for today but will be nothing by mouth again after midnight. Continue lidocaine patches in conjunction with [place] or low-dose morphine while nothing by mouth. Mild anemia-appears chronic with some blood loss following hospitalization. Likely dilutional. Iron studies, B-12, folic acid, and reticulocyte count to be obtained in a.m. Check Hemoccult if patient has a stool. Discussed with radiology, discussed with Dr. Demarco, discussed with family members at bedside. Depressed protein levels, nutritional supplements initiated. Melatonin started last night for difficulty sleeping; Tylenol PM added as needed tonight. DVT Prophylaxis: SCD's Resuscitation Status: Do Not Resuscitate - Physician Narrative Narrative: Date: 12/15/17 Time: 1941 Hospital Course Summary Disclaimer: The visit summary below is not to be considered part of the above Progress Note. Hospital Course: Impression Extensive retroperitoneal lymphadenopathy Back pain- worsening by 3 months Diffuse abdominal pain- worsening by 3 months Hypertension Hyperlipidemia History of prostate cancer-underwent 5 rounds of radiation in March 2017 Plan-12/14/17 Hospitalize as outpatient under the care of Dr. Gresham for abdominal pain, back pain, lymphadenopathy. Consult placed to Dr. Demarco for further oncology evaluation and recommendations. Repeat CBC, BMP, LDH on admission. Will obtain CT scan of the chest to rule out underlying neoplasm. Continue with clear liquid diet only. May require Colonoscopy. Has been undergoing prep since yesterday as he was scheduled for an outpatient colonoscopy tomorrow 12/15 in [place], [place]. Continue hydration with normal saline at 100 ML per hour. We discussed pain control as patient has been utilizing significant Tylenol without any pain relief. Will place Lidoderm patch to patient's back and will order [place] to use as needed for pain control. Continue on home Norvasc for treatment of hypertension. Patient had only recently been placed on Zantac 2 weeks ago when evaluated for his abdominal discomfort. However, he did not feel this made any difference. Zofran available as needed for nausea Patient has completed 8 day course of Cipro for treatment of UTI. We will stop Cipro and recheck urinalysis at this time Given weakness and ability will consider consultation with PT and OT to evaluate weakness given patient resides independently SCDs to bilateral lower extremity for DVT prophylaxis Patient does wish to be a do not resuscitate and this orders written 12/15/17 Generally doing well, biopsy of pelvic mass scheduled for tomorrow morning. Diet resumed for today but will be nothing by mouth again after midnight. Continue lidocaine patches in conjunction with [place] or low-dose morphine while nothing by mouth. Mild anemia-appears chronic with some blood loss following hospitalization. Likely dilutional. Iron studies, B-12, folic acid, and reticulocyte count to be obtained in a.m. Check Hemoccult if patient has a stool. Discussed with radiology, discussed with Dr. Demarco, discussed with family members at bedside. Depressed protein levels, nutritional supplements initiated.
[2017-12-15] MEDS: LIDOCAINE PATCH REMOVAL TOP SCH (20:08)
[2017-12-16 04:46] VITALS: RESP 16
[2017-12-16] MEDS: MORPHINE SULFATE 2mg INJECTION IVP PRN (06:46)
[2017-12-16] MEDS: NS 1,000 ML IV SCH (06:50)
[2017-12-16] MEDS ORDERED: LIDOCAINE 1% (10mg/ml) 5ml PF SDV ONE (08:35)
[2017-12-16] MEDS ORDERED: RANITIDINE 150 MG TABLET PO SCH (09:00)
[2017-12-16 09:42] VITALS: PULSE 64; TEMP 98; O2SAT 94
--- NOTE | 2017-12-16 09:45 | CT Scan Report ---
Indication:periaortic/pelvic adenopathy Procedure:CT biopsy lymph node CT-GUIDED PELVIC MASS BIOPSY: After discussing the details of the procedure, including the risks, the patient wished to proceed. Informed consent was obtained. A preprocedural timeout was performed to confirm the correct patient and procedure. Using aseptic technique, local lidocaine anesthetic, and CT guidance throughout, a 17-gauge coaxial needle was advanced from a posterior approach into the left-sided pelvic mass located just inferior to the left SI joint. Three tissue samples using an 18-gauge x 2.3 cm throw core Biopince biopsy needle were obtained, placed in formalin, and sent to lab for the requested studies. The needle was removed. The patient tolerated this procedure well. Following this, the patient was taken back to his room on the medical floor. He was in stable condition. Impression: Successful CT-guided core biopsy of the left-sided pelvic mass. .
[2017-12-16] MEDS ORDERED: CYANOCOBALAMIN (B-12) 500mcg TABLET PO SCH (10:00)
[2017-12-16] MEDS: LIDOCAINE 5% PATCH TOP SCH (10:14)
[2017-12-16] MEDS: AMLODIPINE 5 MG TABLET PO SCH (10:14)
[2017-12-16] MEDS: HYDROCODONE/APAP 5mg/325mg TABLET PO PRN (10:19)
[2017-12-16] MEDS ORDERED: MORPHINE SULFATE 10mg/0.5ml ORAL LIQ PO PRN (11:25)
[2017-12-16 12:03] VITALS: BP 120/68
--- NOTE | 2017-12-16 14:43 | Discharge Summary ---
Discharge Information Date of admission: 12/14/17 15:31 Anticipated date of discharge: 12/16/17 Attending Physician: Danielle Gresham MD Primary care physician: Dr. Jt Desai Consults: Consulting Provider: Gus Demarco Reason For Exam: lymphadenopathy, prostate cancer - Discharge Diagnosis (1) Abdominal pain Status: Acute (2) Back pain Status: Acute (3) Lymphadenopathy, retroperitoneal Status: Acute Extensive retroperitoneal lymphadenopathy Back pain- worsening by 3 months Diffuse abdominal pain- worsening by 3 months Anemia, normocytic Malnutrition Hypertension Hyperlipidemia History of prostate cancer-underwent 5 rounds of radiation in March 2017; rising PSA Insomnia - Procedures Procedures: Date of Exam: 12/16/17 Indication:periaortic/pelvic adenopathy Procedure:CT biopsy lymph node CT-GUIDED PELVIC MASS BIOPSY: After discussing the details of the procedure, including the risks, the patient wished to proceed. Informed consent was obtained. A preprocedural timeout was performed to confirm the correct patient and procedure. Using aseptic technique, local lidocaine anesthetic, and CT guidance throughout, a 17-gauge coaxial needle was advanced from a posterior approach into the left-sided pelvic mass located just inferior to the left SI joint. Three tissue samples using an 18-gauge x 2.3 cm throw core Biopince biopsy needle were obtained, placed in formalin, and sent to lab for the requested studies. The needle was removed. The patient tolerated this procedure well. Following this, the patient was taken back to his room on the medical floor. He was in stable condition. Impression: Successful CT-guided core biopsy of the left-sided pelvic mass. - Laboratory Labs: 12/16/17 04:22 12/16/17 04:22 Laboratory Tests 12/16/17 04:22 Iron 24 L TIBC 212 L % Saturation 11 L Laboratory Tests 12/16/17 04:22 Vitamin B12 278 Folate 3.9 - Radiology Radiology: Date of Exam: 12/14/17 Indication: abdominal adenopathy, history of prostate cancer PROCEDURE: CT chest w con: Findings: The lung bases show a 5 to 6 mm noncalcified left lower lobe pulmonary nodule and minimal scarring in the right lower lobe. No pneumonia, pleural effusion or pneumothorax. The central airways are patent. The thyroid gland is unremarkable. No axillary or mediastinal adenopathy. Heart size is normal. No pericardial effusion. The upper abdomen shows bulky retroperitoneal adenopathy surrounding the aorta and IVC. Bone windows show old healed rib fractures but no obvious lytic or blastic bony lesions. Impression: 1. No acute disease process seen in the chest. 2. Extensive retroperitoneal adenopathy - Pathology lymph node bx: pending History of Present Illness HPI: Patient is a pleasant 87-year-old male who resides in [place], [place] independently under the primary care of Dr. Jt Connolly. Patient reports he last received a Lupron injection in August and since that time has had a steady decline including weakness and fatigue. Since that time he has also had acute onset of generalized abdominal pain with lumbar back pain with radiation down the left leg. Patient was scheduled for a colonoscopy tomorrow. 12/15 and began the bowel prep yesterday while at home. He had taken large doses of MiraLAX for GI prep and began to feel significantly more weak. He was able to ambulate to his living room and called the hospital and was speaking on the phone with the nurse, at which time he had a syncopal episode for several minutes. The nurse remained on the line during this time and then contacted EMS , patient was seen in the emergency room yesterday at [facility] for further evaluation. Basic laboratory studies were obtained. And a CT scan of the abdomen. Unfortunately revealed extensive retroperitoneal and left pelvic lymphadenopathy with encasement of sciatic neurovascular bundle and left iliac vascular structures. This is concerning for potential lymphoma or metastatic disease. The cousin his reported left lower extremity pain. A venous Doppler of the left lower extremity was also performed that showed no evidence of acute DVT. Because of these findings, Dr. Demarco with oncology was contacted as well as the [facility] hospitalist. He was accepted for direct admission to [facility] medical unit under the care of Dr. Gresham. Morning labs from [facility] are reviewed, white count was found to be normal at 5.5, hemoglobin 10.4, hematocrit 30.6, platelet count 226. Sodium is 141, potassium 4.1, BUN 13, creatinine 0.9. Patient did have a urinalysis that was positive on 12/05/17. A urine culture was performed and did grow out Escherichia coli. Since that time, patient has been on Cipro. Patient is alert, oriented and pleasant. He is able to give accurate history and is accompanied by his son and daughter. We did discuss advanced directives. Patient does indicate he is a do not resuscitate Objective Vital signs: Temperature 98.0 F 12/16/17 09:40 Pulse Rate 64 12/16/17 09:40 Respiratory Rate 16 12/16/17 09:40 Blood Pressure 120/68 12/16/17 12:02 Pulse Oximetry 94 12/16/17 09:40 Height/Weight/BMI: Height 1.7 m Weight 67.5 kg Body Mass Index 22.7 - Constitutional Present: no acute distress, well nourished, well developed - Routine HEENT Exam Head: Present: normocephalic, atraumatic - Routine Respiratory Exam Present: CTA bilaterally. Absent: wheezes - Routine Cardiovascular Exam Present: RRR, no murmur - Routine Abdominal Exam Present: soft, non distended, non tender - Routine Extremities Exam Present: no edema, normal capillary refill - Routine Skin Exam Present: dry, warm - Routine Neurological Exam Present: alert, oriented X3 - Routine Lymphatic Exam Lymphatic: Absent: adenopathy - Routine Psychiatric Exam Present: normal affect, cooperative Hospital Course This is a general summary of the patient's hospital course. For more details refer to the complete medical record. Hospital course: 12/14/17 Hospitalize as outpatient under the care of Dr. Gresham for abdominal pain, back pain, lymphadenopathy. Consult placed to Dr. Demarco for further oncology evaluation and recommendations. Repeat CBC, BMP, LDH on admission. Will obtain CT scan of the chest to rule out underlying neoplasm. Continue with clear liquid diet only. May require Colonoscopy. Has been undergoing prep since yesterday as he was scheduled for an outpatient colonoscopy tomorrow 12/15 in [place], [place]. Continue hydration with normal saline at 100 ML per hour. We discussed pain control as patient has been utilizing significant Tylenol without any pain relief. Will place Lidoderm patch to patient's back and will order [place] to use as needed for pain control. Continue on home Norvasc for treatment of hypertension. Patient had only recently been placed on Zantac 2 weeks ago when evaluated for his abdominal discomfort. However, he did not feel this made any difference. Zofran available as needed for nausea Patient has completed 8 day course of Cipro for treatment of UTI. We will stop Cipro and recheck urinalysis at this time Given weakness and ability will consider consultation with PT and OT to evaluate weakness given patient resides independently [facility] to bilateral lower extremity for DVT prophylaxis Patient does wish to be a do not resuscitate and this orders written 12/15/17 Generally doing well, biopsy of pelvic mass scheduled for tomorrow morning. Diet resumed for today but will be nothing by mouth again after midnight. Continue lidocaine patches in conjunction with [place] or low-dose morphine while nothing by mouth. Mild anemia-appears chronic with some blood loss following hospitalization. Likely dilutional. Iron studies, B-12, folic acid, and reticulocyte count to be obtained in a.m. Check Hemoccult if patient has a stool. Discussed with radiology, discussed with Dr. Demarco, discussed with family members at bedside. Depressed protein levels, nutritional supplements initiated. 12/16/17 Patient had his lymph node biopsy performed this morning. His pain is controlled with hydrocodone. He'll be discharged home today with plans to follow-up with Dr. Demarco next week in [place]. He'll see his PCP next week for follow-up as well. He was discharged home with prescription for hydrocodone # 30 pills. During his stay he was also started on cyanocobalamin and ferrous sulfate. Time spent with patient: discharge greater than 30 minutes Resuscitation Status: Do Not Resuscitate Discharge Plan - Discharge Disposition Discharge Date: 12/16/17 Disposition: Discharged Home, Self-Care *Condition: Stable Reason For Visit (Visit label in EMR): ABD pain and adenopathy - Discharge Medications *Discharge Medications: New Cyanocobalamin (B-12) [Vit. B-12] 1,000 mcg PO DAILY #30 tab Hydrocodone/APAP 5/325 [[place] 5/325] 1 tab PO QID PRN #30 tab PRN Reason: Pain Ferrous Sulfate 325 mg PO DAILY #30 tablet. Continue Amlodipine [Norvasc] 5 mg PO DAILY Acetaminophen [Tylenol] 1 tab PO Q4H PRN PRN Reason: Pain raNITIdine HCl [Zantac 75] 75 mg PO DAILY Discontinued Ciprofloxacin [Cipro 500 mg] 500 mg PO BID - Discharge Packet/Instructions *Diet: Regular diet as tolerated *Activity: As tolerated *Pain Management/Treatment: Hydrocodone as needed *Wound Care: N/a Additional Instructions: He has an appointment on December 23 at 1 PM with EB Dotson for follow-up *Expected Signs/Symptoms: N/a *Notify Physician if: You develop fever or have uncontrolled pain. *During Business Hours Contact: Your PCPs office *After Business Hours Contact: Your PCPs office and follow after-hours instructions or report to the ER. *Pending Lab/Results: Follow up w/Provider (Dr. Demarco next week) - Referrals/Follow Up *Referrals/Follow Up: Gus Demarco MD [Physician] - 12/21/17 1:30 pm (see Dr Demarco's midlevel in [facility] next tue or see LISA SANCHEZ IN [place].) - Patient Handouts - Dismissal Complete Discharge Instructions are:: Complete Physician Narrative - Narrative Physician: Danielle Gresham MD Attestation Narrative: Date: 12/16/17 Time: 2129 I have independently evaluated and examined this patient. I reviewed the chart, the patient's history, and the STUDENT FINANCE ADVISOR/PA's documented findings as above. We discussed and formulated the assessment and plan as above with additions as below: Mr. Levy was seen earlier in the day with multiple family members at the bedside. He reported minimal abdominal pain at the time and had no difficulty with biopsy which had been obtained couple hours earlier. His daughter had multiple questions about narcotics and what would be prescribed. She asked if a fentanyl patch was appropriate and I indicated I did not believe that was needed at this time. NAD, alert Respirations nonlabored, abdomen soft, nontender, bowel sounds present Stable for discharge with follow-up for biopsy results in 5-[address] Demarco in [place]. Patient will be started on iron and B-12 supplements due to chronic anemia with nutritional deficiencies as noted above.
--- NOTE | 2017-12-16 18:10 | Progress Note ---
Oncology Subjective Had biopsy. Going home today. Will follow up after discharge. Exam Vital signs: Temperature 98.0 F 12/16/17 09:40 Pulse Rate 64 12/16/17 09:40 Respiratory Rate 16 12/16/17 09:40 Blood Pressure 120/68 12/16/17 12:02 Pulse Oximetry 94 12/16/17 09:40 - Constitutional no acute distress, cooperative - Routine HEENT Exam Head: Present: normocephalic Eye: Present: EOMI - Routine Neck Exam Present: supple - Routine Abdominal Exam Present: soft - Routine Extremities Exam Absent: edema Oncology Results - Labs CBC & Chem 7: 12/16/17 04:22 12/16/17 04:22 Labs: Short CBC 12/16/17 Range/Units 04:22 WBC 5.4 (4.5-11.0) T/MM3 Hgb 10.1 L (13.5-17.5) GM/DL Hct 31.9 L (41-53) % Plt Count 226 (130-400) T/MM3 BMP 12/16/17 04:22 Sodium 144 Potassium 3.9 Chloride 110 H Carbon Dioxide 26 BUN 10.0 Creatinine 0.7 L Glucose 93 Calcium 8.3 L Assessment and Plan Assessment and Plan: Assessment 1. Retroperitoneal lymphadenopathy, potentially related to metastatic prostate carcinoma versus lymphoma. Await path. Will see in office to review path on Tuesday. 2. History of prostate cancer treated with radiation therapy and Lupron. Have requested records. PSA on is 83, PSA was 3.65 on 12/05/17. 3. Anemia with hemoglobin dropping from outside hospital from 11.9 on admission on 12/13 to 10.4 on 12/14. HGB today, 12/15/17, is 9.4 Recommendation Needle biopsy done today, await pathology. Patient has no questions at this time. - Time Spent With Patient Total time spent is greater than 50% in coordination of care (as documented) at patient's floor/unit and/or counseling patient: less than 15 minutes
== END 2017-12-16 16:28 | disposition home health service (06) ==
LOC: MED
PROVIDERS: ADMIT Internal Medicine; ATTEND Internal Medicine